=== PATIENT | female | born 1990 | race Two or more races ===

== ENCOUNTER 2016-06-07 20:05 | Emergency (ER) | payer SELFPAY ==
--- NOTE | 2016-06-07 20:12 | ER Document Report ---
ED Medical Screen (RME) - General Stated Complaint: BODY PAIN DIZZY Mode of Arrival: Ambulatory Information source: Patient Notes: Patient presents to the emergency department with complaints of body aches and pains dizziness for 2 weeks. Reports occasional diarrhea. Reports occasionally nauseated, vomited three days ago. Reports when she stands up she feels dizzy for a few seconds when she starts walking it goes away. Past medical history. Reports doesn't drink enough fluids. I have greeted and performed a rapid initial assessment of this patient. A comprehensive ED assessment and evaluation of the patient, analysis of test results and completion of the medical decision making process will be conducted by additional ED providers. TRAVEL OUTSIDE OF THE [place] IN LAST 30 DAYS: No - Related Data Allergies/Adverse Reactions: No Known Allergies Allergy (Unverified 01/04/14 13:22) Past Medical History Past Surgical History: Reports: Hx Appendectomy, Hx Oral Surgery - wisdom teeth - Immunizations Hx Diphtheria, Pertussis, Tetanus Vaccination: Yes
--- NOTE | 2016-06-07 21:23 | EKG REPORT ---
SEVERITY:- NORMAL ECG - SINUS RHYTHM : Confirmed by: Tony Ray MD 07-Jun-2016 21:22:48
[2016-06-07 21:54] LABS: APPEARANCE,URINE CLOUDY; BILIRUBIN,URINE NEGATIVE (NEGATIVE); GLUCOSE, URINE NEGATIVE (NEGATIVE); KETONES,URINE TRACE mg/dL (NEGATIVE); LEUKOCYTE ESTERASE,URINE MODERATE (NEGATIVE); NITRITE,URINE NEGATIVE (NEGATIVE); PROTEIN,URINE NEGATIVE (NEGATIVE); URINE SPECIFIC GRAVITY 1.035; UROBILINOGEN,URINE NEGATIVE mg/dL (<2.0)
--- NOTE | 2016-06-08 00:10 | ER Document Report ---
ED General - General Chief Complaint: Pain All Over Stated Complaint: BODY PAIN DIZZY Mode of Arrival: Ambulatory Information source: Patient Notes: 26 y/o F presents to ED c/o bilateral lower back and lower leg/feet pain. Patient reports works long hours 6 days a week with prolonged standing and states over the last 2 weeks has had intermittently persistent pain to bilateral lower back and feet particularly after work. Reports pain is mostly to bilateral heels and lower back. Denies fall or trauma, fever, extremity weakness/numbness/tingling, dysuria or hematuria, vaginal bleeding or discharge , incontinence, or urinary retention. TRAVEL OUTSIDE OF THE [place] IN LAST 30 DAYS: No - HPI Onset/Duration: Intermittent, Persistent Quality of pain: Achy Severity: Mild Pain Level: 3 Exacerbated by: Standing Relieved by: Sitting Similar symptoms previously: Yes Recently seen / treated by doctor: No - Related Data Allergies/Adverse Reactions: No Known Allergies Allergy (Unverified 01/04/14 13:22) Past Medical History - General Information source: Patient - Social History Smoking Status: Never Smoker Frequency of alcohol use: None Drug Abuse: None Lives with: Family Family History: Reviewed & Not Pertinent Patient has suicidal ideation: No Patient has homicidal ideation: No - Medical History Medical History: Negative Renal/ Medical History: Denies: Hx Peritoneal Dialysis Past Surgical History: Reports: Hx Appendectomy, Hx Oral Surgery - wisdom teeth - Immunizations Hx Diphtheria, Pertussis, Tetanus Vaccination: Yes Review of Systems - Review of Systems Constitutional: No symptoms reported EENT: No symptoms reported Cardiovascular: No symptoms reported Respiratory: No symptoms reported Gastrointestinal: No symptoms reported Genitourinary: No symptoms reported Female Genitourinary: No symptoms reported Musculoskeletal: See HPI Skin: No symptoms reported Hematologic/Lymphatic: No symptoms reported Neurological/Psychological: No symptoms reported -: Yes All other systems reviewed and negative Physical Exam - Vital signs Vitals: Temp Pulse Resp BP Pulse Ox 98.4 F 68 17 112/63 100 06/07/16 20:13 06/07/16 20:13 06/07/16 20:13 06/07/16 20:13 06/07/16 20:13 Interpretation: Normal - General General appearance: Appears well, Alert In distress: None - HEENT Head: Normocephalic, Atraumatic Eyes: Normal Pupils: PERRL - Respiratory Respiratory status: No respiratory distress Chest status: Nontender Breath sounds: Normal Chest palpation: Normal - Cardiovascular Rhythm: Regular Heart sounds: Normal auscultation Murmur: No Pulses: Normal: Radial, Dorsalis pedis Normal capillary refill: Yes - Abdominal Inspection: Normal Distension: No distension Bowel sounds: Normal Tenderness: Nontender Organomegaly: No organomegaly - Back Back: Tender - Mild tenderness to palpation to bilateral paraspinal musculature at the upper lumbar level. Full range of motion without paresthesias or neurological deficits.. No: Normal, Nontender, Deformity/step-off, CVA tenderness, Vertebra tenderness, Scars, Scoliosis, Wounds, Other - Extremities General upper extremity: Normal inspection, Nontender, Normal color, Normal ROM , Normal strength, Normal temperature. No: Tender, Edema General lower extremity: Normal inspection, Nontender, Normal color, Normal ROM , Normal strength, Normal temperature, Normal weight bearing. No: Tender, Edema , Sera's sign - Neurological Neuro grossly intact: Yes Cognition: Normal Orientation: AAOx4 [place] Coma Scale Eye Opening: Spontaneous [place] Coma Scale Verbal: Oriented [place] Coma Scale Motor: Obeys Commands [place] Coma Scale Total: 15 Speech: Normal Motor strength normal: LUE, RUE, LLE, RLE Sensory: Normal - Psychological Associated symptoms: Normal affect, Normal mood - Skin Skin Temperature: Warm Skin Moisture: Dry Skin Color: Normal Course - Re-evaluation Re-evalutation: 06/08/16 00:14 Patient hemodynamically stable, in no distress, afebrile, nontoxic, and well- appearing. Trace ketones, moderate leukocyte esterase, and wbc's in UA. Urine culture obtained. No suggestion of pyelonephritis or other emergent or significant etiology at this time. The patient presents with back pain without signs of spinal cord compression, cauda equina syndrome, infection, aneurysm, or other serious etiology. The patient is neurologically intact, independently and steadily ambulatory without paresthesias or neurological deficits. Given the extremely low risk of these diagnoses further testing and evaluation for these possibilities does not appear to be indicated at this time. Patient appears stable for discharge and agrees with home care, follow-up with PCP, and ED return precautions. - Vital Signs Vital signs: Temp Pulse Resp BP Pulse Ox 98.4 F 68 17 112/63 100 06/07/16 20:13 06/07/16 20:13 06/07/16 20:13 06/07/16 20:13 06/07/16 20:13 - Laboratory Laboratory results interpreted by me: 06/07/16 21:15 Urine Ketones TRACE H Ur Leukocyte Esterase MODERATE H Urine Ascorbic Acid 40 H Discharge - Discharge Clinical Impression: Back pain Qualifiers: Back pain location: low back pain Chronicity: acute Back pain laterality: bilateral Sciatica presence: without sciatica Qualified Code(s): M54.5 - Low back pain UTI (urinary tract infection) Qualifiers: Urinary tract infection type: site unspecified Hematuria presence: without hematuria Qualified Code(s): N39.0 - Urinary tract infection, site not specified Condition: Stable Disposition: HOME, SELF-CARE Additional Instructions: LOW BACK PAIN: Three out of every four people will have an episode of disabling back pain during their lifetime. Most commonly the pain is due to straining of the muscles and ligaments in the low back. Usual treatment includes: (1) Rest on a firm surface. Avoid lying on your stomach. (2) Ice pack the painful area. After a few days, gentle heat may be used intermittently to relax the area, or ice packs can be continued. (3) Medication may be needed -- muscle relaxers and antiinflammatory medicines are commonly used. (4) As the back improves, exercises are prescribed to strengthen the back and abdominal muscles. Your doctor will advise you on the proper care for your back at each stage in your recovery. You may be better in a few days -- or healing may take several weeks. If new symptoms of a "herniated disc" (radiation of pain, numbness, or tingling down the back of the leg or weakness in the leg) occur, you should be re-examined. Further testing may be necessary. Anti-Inflammatory Medication You have received a prescription for an antiinflammatory agent. This is an excellent, safe drug for pain control. In addition, it has potent antiinflammatory effects which are beneficial, especially in the treatment of injuries, arthritis, or tendonitis. It's best to take this medicine with food. Persons with ulcer disease or allergy to aspirin should notify their physician of this before taking this drug. Take the medication exactly as prescribed. Don't take additional doses unless instructed to do so by your doctor. If you develop wheezing, shortness of breath, hives, faintness, stomach pain, vomiting, or dark black stools, return for re-evaluation at once. ICE PACKS: Apply ice packs frequently against the painful area. Many different schedules are recommended, such as "20 minutes on, 20 minutes off" or "one hour ice, two hours rest." If you need to work, you may need to go longer between ice treatments. You should plan to have the area ice packed AT LEAST one fourth of the time. The ice should be applied over the wrap, tape, or splint, or over a layer of cloth -- not directly against the skin. Some ice bags have a built-in cloth and can be put directly on the skin. WARM PACKS: After approximately two days, apply gentle heat (such as a heating pad or hot water bottle) for about 20 to 30 minutes about every two hours -- at least four times daily. Warmth and elevation will help you make a more rapid recovery , and will ease the pain considerably. Do not use HOT heat, and never apply heat for longer than 30 minutes. The continuous heat can invisibly damage skin and muscles -- even when no burn is seen on the surface. Damaged muscles can make you MORE sore. URINARY TRACT INFECTION: Your evaluation indicates that you have a urinary tract infection. This is due to germs growing in the bladder. This is a common problem. This infection usually responds quickly to antibiotics. Your antibiotic should be taken exactly as prescribed. Drink plenty of fluids -- three to four quarts a day. Occasionally, a bladder anesthetic will be prescribed to help stop the feeling of urgency until the antibiotic has a chance to clear the infection. This may cause your urine to be dark orange. Certain urine infections require a culture. If the doctor obtained a culture, the results will be back in two days. You should call to see if a change in treatment is needed. A repeat urinalysis after you finish treatment is often recommended. The physician will let you know if further testing is required. Call the doctor if you develop fever, chills, flank pain, inability to urinate, or blood in the urine. ANTIBIOTIC THERAPY: You have been given an antibiotic prescription. It's important that you take all the medication, unless instructed otherwise by your physician. Failure to complete the entire course can result in relapse of your condition. Common side effects of antibiotics include nausea, intestinal cramping, or diarrhea. Women may develop vaginal yeast infections, and babies can get yeast (thrush) in the mouth following the use of antibiotics. Contact your physician if you develop significant side effects from this medication. Allergy to this antibiotic can result in hives, wheezing, faintness, or itching. If symptoms of allergy occur, stop the medication and call the doctor. NITROFURANTOIN (MACRODANTIN, MACROBID): You have received a prescription for nitrofurantoin (Macrodantin). This antibiotic is used for urinary tract infections. Women who are or nursing should notify the physician before taking this medicine. If you have ever had a problem caused by this medication in the past, be sure the physician is aware of it. Common side effects of this medicine include nausea, vomiting, or decreased appetite. Notify your physician if these side effects become severe. Immediately stop this medicine and call the physician if you develop cough , shortness of breath, chest pain, weakness, jaundice (yellow color of the skin and whites of the eyes), or a skin rash. FOLLOW-UP CARE: Drink plenty of fluids, at least 2-3 liters of water per day. Use supportive insoles and/or well padded shoes during work. Follow-up with your primary care provider this week. Return to the emergency department for any worsening symptoms or concerns. Prescriptions: Naproxen 500 mg PO BIDP PRN #10 tablet PRN Reason: Nitrofurantoin/Nitrofuran Mac [Macrobid 100 mg Capsule] 1 tab PO BID #14 capsule Forms: Return to Work
[2016-06-08 00:43] VITALS: BP 118/61
== END 2016-06-08 00:35 | disposition home or self-care (01) ==
LOC: ER 20:05
DX: N39.0 Urinary tract infection, site not specified (principal); M54.5 Low back pain; M79.671 Pain in right foot; M79.672 Pain in left foot
CPT/HCPCS: 81001; 81025; 87086; 93005; 93010; 99283

== ENCOUNTER 2016-11-04 08:44 | Emergency (ER) | payer OTHER ==
--- NOTE | 2016-11-04 09:38 | ER Document Report ---
ED General - General Chief Complaint: Nausea Stated Complaint: NAUSEA,CHEST PRESSURE Time Seen by Provider: 11/04/16 09:28 Notes: 26 yo female c/o becoming over heated while at work today. 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 became over heated, started to sweat, hands and mouth became numb. pt worried she had a heat stroke. TRAVEL OUTSIDE OF THE [place] IN LAST 30 DAYS: No - HPI Onset/Duration: Sudden, Better Quality of pain: Achy Associated symptoms: Sweating, Weakness. denies: Nausea, Vomiting Exacerbated by: Denies Relieved by: Denies Similar symptoms previously: No Recently seen / treated by doctor: No - Related Data Allergies/Adverse Reactions: No Known Allergies Allergy (Verified 11/04/16 08:47) Past Medical History - General Information source: Patient - Social History Smoking Status: Never Smoker Frequency of alcohol use: None Drug Abuse: None Lives with: Family Family History: Reviewed & Not Pertinent Patient has suicidal ideation: No Patient has homicidal ideation: No - Medical History Medical History: Negative Renal/ Medical History: Denies: Hx Peritoneal Dialysis Past Surgical History: Reports: Hx Appendectomy, Hx Oral Surgery - wisdom teeth - Immunizations Hx Diphtheria, Pertussis, Tetanus Vaccination: Yes Review of Systems - Review of Systems Constitutional: No symptoms reported EENT: No symptoms reported Cardiovascular: No symptoms reported Respiratory: No symptoms reported Gastrointestinal: No symptoms reported Genitourinary: No symptoms reported Female Genitourinary: No symptoms reported Musculoskeletal: No symptoms reported Skin: No symptoms reported Hematologic/Lymphatic: No symptoms reported Neurological/Psychological: No symptoms reported -: Yes All other systems reviewed and negative Physical Exam - Vital signs Interpretation: Normal - General General appearance: Appears well, Alert In distress: None - HEENT Head: Normocephalic, Atraumatic Eyes: Normal Conjunctiva: Normal Extraocular movements intact: Yes Pupils: PERRL Tympanic membrane: Normal Mucous membranes: Moist Pharynx: Normal Neck: Normal, Supple - Respiratory Respiratory status: No respiratory distress Chest status: Nontender Breath sounds: Normal Chest palpation: Normal - Cardiovascular Rhythm: Regular Heart sounds: Normal auscultation Murmur: No - Abdominal Inspection: Normal Distension: No distension Bowel sounds: Normal Tenderness: Nontender Organomegaly: No organomegaly - Back Back: Normal, Nontender - Extremities General upper extremity: Normal inspection, Nontender, Normal color, Normal ROM , Normal temperature General lower extremity: Normal inspection, Nontender, Normal color, Normal ROM , Normal temperature, Normal weight bearing. No: Sera's sign - Neurological Neuro grossly intact: Yes Cognition: Normal Orientation: AAOx4 [place] Coma Scale Eye Opening: Spontaneous [place] Coma Scale Verbal: Oriented [place] Coma Scale Motor: Obeys Commands [place] Coma Scale Total: 15 Speech: Normal Motor strength normal: LUE, RUE, LLE, RLE Sensory: Normal - Psychological Associated symptoms: Normal affect, Normal mood - Skin Skin Temperature: Warm Skin Moisture: Dry Skin Color: Normal Course - Re-evaluation Re-evalutation: 11/04/16 09:37 H&P physical not consistant with heat stroke. more likely, pt became overheated , hyperventilated. will check labs and encourage po fluids 11/04/16 11:24 labs are normal. pt drinking without difficulty. feeling well presenlty. no abdominal pain, no muscle cramping, no headache, no n/v. pt stable for discharge - Laboratory Result Diagrams: 11/04/16 09:55 Laboratory results interpreted by me: 11/04/16 09:55 Ur Leukocyte Esterase TRACE H Discharge - Discharge Clinical Impression: Hyperventilation Heat exhaustion, unspecified Qualifiers: Encounter type: initial encounter Qualified Code(s): T67.5XXA - Heat exhaustion , unspecified, initial encounter Condition: Stable Disposition: HOME, SELF-CARE Instructions: Heat Exhaustion ([facility]), Hyperventilation ([facility]) Additional Instructions: your labs are normal today you got overheated at worked and hyperventilated rest and hydrate follow up with primary care Forms: Return to Work
[2016-11-04 10:36] LABS: APPEARANCE,URINE SLIGHTLY-CLOUDY; BILIRUBIN,URINE NEGATIVE (NEGATIVE); GLUCOSE, URINE NEGATIVE (NEGATIVE); KETONES,URINE NEGATIVE (NEGATIVE); LEUKOCYTE ESTERASE,URINE TRACE (NEGATIVE); NITRITE,URINE NEGATIVE (NEGATIVE); PROTEIN,URINE NEGATIVE (NEGATIVE); URINE SPECIFIC GRAVITY 1.029; UROBILINOGEN,URINE NEGATIVE mg/dL (<2.0)
[2016-11-04 10:44] LABS: ALANINE AMINOTRANSFERASE 24 U/L (9-52); ALBUMIN 4.2 g/dL (3.5-5.0); ALKALINE PHOSPHATASE 66 U/L (38-126); ANION GAP 11 (5-19); ASPARTATE AMINO TRANSFERASE 15 U/L (14-36); BILIRUBIN,DIRECT 0.3 mg/dL (0.0-0.4); BILIRUBIN,TOTAL 0.7 mg/dL (0.2-1.3); BLOOD UREA NITROGEN 12 mg/dL (7-20); CALCIUM 9.6 mg/dL (8.4-10.2); CARBON DIOXIDE 25 mmol/L (22-30); CHLORIDE 103 mmol/L (98-107); CREATINE KINASE 94 U/L (30-135); CREATININE RESULT 0.53 mg/dL (0.52-1.25); GLUCOSE 93 mg/dL (75-110); SODIUM 139.2 mmol/L (137-145); TOTAL PROTEIN 7.3 g/dL (6.3-8.2)
[2016-11-04 11:36] VITALS: BP 98/60
== END 2016-11-04 11:36 | disposition home or self-care (01) ==
LOC: ER 08:44
DX: T67.5XXA Heat exhaustion, unspecified, initial encounter (principal); W92.XXXA Exposure to excessive heat of man-made origin, initial encounter; Y93.G3 Activity, cooking and baking; Y92.89 Other specified places as the place of occurrence of the external cause; Y99.0 Civilian activity done for income or pay; R06.4 Hyperventilation
CPT/HCPCS: 36415; 80053; 81001; 81025; 82550; 99283

== ENCOUNTER 2016-12-21 08:37 | Emergency (ER) | payer OTHER ==
[2016-12-21] MEDS ORDERED: ACETAMINOPHEN 325 MG TABLET PO ONE (09:46)
--- NOTE | 2016-12-21 09:46 | ER Document Report ---
ED Flu Like - General Chief Complaint: Flu Symptoms Stated Complaint: BODY ACHES Time Seen by Provider: 12/21/16 08:59 Mode of Arrival: Ambulatory Information source: Patient Notes: Patient is a 26-year-old female who presents to the ER today for generalized body aches, sinus pressure, runny nose, mild cough, all starting last night and this morning. Patient admits to fever and chills as well. She has not tried anything at home. She does not have asthma. She denies any shortness of breath or wheezing. She states "my whole body hurts, even my butt hurts." She denies any dysuria, hematuria, vomiting or diarrhea. TRAVEL OUTSIDE OF THE [place] IN LAST 30 DAYS: No - Related Data Allergies/Adverse Reactions: No Known Allergies Allergy (Verified 11/04/16 08:47) Past Medical History - General Information source: Patient - Social History Smoking Status: Unknown if Ever Smoked Family History: Reviewed & Not Pertinent Patient has suicidal ideation: No Patient has homicidal ideation: No Renal/ Medical History: Denies: Hx Peritoneal Dialysis Past Surgical History: Reports: Hx Appendectomy, Hx Oral Surgery - wisdom teeth - Immunizations Hx Diphtheria, Pertussis, Tetanus Vaccination: Yes Review of Systems - Review of Systems Constitutional: See HPI EENT: See HPI Cardiovascular: No symptoms reported Respiratory: See HPI Gastrointestinal: No symptoms reported Genitourinary: No symptoms reported Female Genitourinary: No symptoms reported Musculoskeletal: See HPI Skin: No symptoms reported Hematologic/Lymphatic: No symptoms reported Neurological/Psychological: No symptoms reported Physical Exam - Vital signs Vitals: Temp Pulse Resp BP Pulse Ox 100.4 F 101 H 18 107/61 98 12/21/16 08:39 12/21/16 08:39 12/21/16 08:39 12/21/16 08:39 12/21/16 08:39 - Notes Notes: PHYSICAL EXAMINATION: GENERAL: Mildly ill-appearing, in no acute distress. HEAD: Atraumatic, normocephalic. EYES: Pupils equal round and reactive to light, extraocular movements intact, sclera anicteric, conjunctiva are normal. ENT: ear canals without erythema or foreign body, TMs pearly crawley with good bony landmarks, nares with mucoid discharge, oropharynx clear without exudates. Moist mucous membranes. Maxillary sinuses tender to palpation to extremely light touch NECK: Normal range of motion, supple without lymphadenopathy LUNGS: CTAB and equal. No wheezes rales or rhonchi. HEART: Regular rate and rhythm without murmurs ABDOMEN: Soft, no tenderness. No guarding, no rebound BACK: Entire backwinder to extremely light touch, no specific vertebral tenderness, normal ROM GI/: no CVA tenderness EXTREMITIES: Normal range of motion, no pitting edema. No cyanosis. NEUROLOGICAL: Cranial nerves grossly intact. Normal sensory/motor exams. Good and equal strength bilaterally, Kernig and Brudzinski's signs negative, Romberg' s test normal, normal heel to staples testing PSYCH: Normal mood, normal affect. SKIN: very Warm, Dry, normal turgor, no rashes or lesions noted Course - Re-evaluation Re-evalutation: 12/21/16 10:44Flu and strep are negative today. Patient has a viral syndrome and needs to take Tylenol for her fever And body aches. - Vital Signs Vital signs: Temp Pulse Resp BP Pulse Ox 100.4 F 101 H 18 107/61 98 12/21/16 08:39 12/21/16 08:39 12/21/16 08:39 12/21/16 08:39 12/21/16 08:39 Discharge - Discharge Clinical Impression: Viral syndrome, Body aches Fever Qualifiers: Fever type: unspecified Qualified Code(s): R50.9 - Fever, unspecified Condition: Stable Disposition: HOME, SELF-CARE Instructions: Fever ([facility]), Viral Syndrome ([facility]) Additional Instructions: Return immediately for any new or worsening symptoms. Follow up with primary care provider, call tomorrow to make followup appointment. Prescriptions: Fluticasone Propionate [Flonase Nasal [place] 50 Mcg/[place] 16 gm] 2 sprays NASL Q12 #1 inhaler Ibuprofen [Motrin 800 mg Tablet] 800 mg PO Q8H PRN #30 tab PRN Reason: Forms: Return to Work
[2016-12-21 11:03] VITALS: BP 97/55
== END 2016-12-21 11:03 | disposition home or self-care (01) ==
LOC: ER 08:37
DX: B34.9 Viral infection, unspecified (principal); J34.89 Other specified disorders of nose and nasal sinuses; R05 Cough; R50.9 Fever, unspecified; R52 Pain, unspecified
CPT/HCPCS: 87070; 87077; 87804; 87880; 99283

== ENCOUNTER 2017-07-10 11:47 | Emergency (ER) | payer OTHER ==
[2017-07-10] MEDS ORDERED: IBUPROFEN 800 MG TABLET PO ONE (12:28)
[2017-07-10] MEDS ORDERED: ONDANSETRON 4 MG TAB.RAPDIS PO ONE (12:32)
--- NOTE | 2017-07-10 12:32 | ER Document Report ---
HPI - HPI Patient complains to provider of: flu like symptoms Onset: This morning Onset/Duration: Sudden Quality of pain: Achy Pain Level: 2 Context: Patient presents emergency department with complaints of flulike symptoms that started this morning. Patient reports she vomited once. She reports she has had diarrhea daily for the past 3 days. Reports sore throat in her whole body hurts. She denies fever. Has not taken any medication for her pain. Associated Symptoms: Body/muscle aches, Diarrhea, Nausea, Vomiting Exacerbated by: Denies Relieved by: Denies Similar symptoms previously: No Recently seen / treated by doctor: No Past Medical History - General Information source: Patient Last Menstrual Period: IUD - Social History Smoking Status: Unknown if Ever Smoked Cigarette use (# per day): No Frequency of alcohol use: None Drug Abuse: None Lives with: Family Family History: Reviewed & Not Pertinent Patient has suicidal ideation: No Patient has homicidal ideation: No Renal/ Medical History: Denies: Hx Peritoneal Dialysis Past Surgical History: Reports: Hx Appendectomy, Hx Oral Surgery - wisdom teeth - Immunizations Hx Diphtheria, Pertussis, Tetanus Vaccination: Yes Vertical Provider Document - CONSTITUTIONAL Agree With Documented VS: Yes Exam Limitations: No Limitations General Appearance: WD/WN, No Apparent Distress - NONTOXIC LOOKING - INFECTION CONTROL TRAVEL OUTSIDE OF THE [place] IN LAST 30 DAYS: No - HEENT HEENT: Atraumatic, Normocephalic, Pharyngeal Erythema. negative: Conjuctival Injection, Pharyngeal Exudate - NECK Neck: Normal Inspection, Supple. negative: Lymphadenopathy-Left, Lymphadenopathy-Right - RESPIRATORY Respiratory: Breath Sounds Normal, No Respiratory Distress - CARDIOVASCULAR Cardiovascular: Regular Rate - GI/ABDOMEN Gastrointestinal: Abdomen Soft, Abdomen Non-Tender - MUSCULOSKELETAL/EXTREMETIES Musculoskeletal/Extremeties: MAEW, FROM - NEURO Level of Consciousness: Awake, Alert, Appropriate Motor/Sensory: No Motor Deficit - DERM Integumentary: Warm, Dry, No Rash Course - Re-evaluation Re-evalutation: 07/10/17 Patient positive for strep negative for influenza. Patient will be treated with penicillin G here in the emergency department. She was instructed on strep. She was instructed on the importance of fluids Tylenol and follow-up. She verbalized understanding all instructions. - Vital Signs Vital signs: Temp Pulse Resp BP Pulse Ox 100.6 F H 67 18 112/84 100 07/10/17 12:03 07/10/17 12:03 07/10/17 12:03 07/10/17 12:03 07/10/17 12:03 Discharge - Discharge Clinical Impression: Flu-like symptoms, Strep throat Condition: Stable Disposition: HOME, SELF-CARE Instructions: Acetaminophen, Penicillins ([facility]), Strep Throat ([facility]) Additional Instructions: *You have been evaluated for a flu like symptoms, strep *Take tylenol or ibuprofen as indicated *Push fluids *Warm salt water gargles and throat lozenges for comfort *Change toothbrush after two days of antibiotics *Do not let anyone drink/eat after you *Good hand washing *Follow-up with a primary care provider within 5 days for recheck *Return to ED for worsening condition change, needs, trouble swallowing, concerns
[2017-07-10 13:22] LABS: A TYPE INFLUENZA AG NEGATIVE (NEGATIVE); B INFLUENZA AG NEGATIVE (NEGATIVE)
[2017-07-10] MEDS ORDERED: PENICILLIN G BENZATHINE 1.2 MILLION UNIT/2 ML DISP.SYRIN IM ONE (13:25)
[2017-07-10 14:25] VITALS: BP 96/59
== END 2017-07-10 14:26 | disposition home or self-care (01) ==
LOC: ER 11:47
DX: J02.0 Streptococcal pharyngitis (principal); R19.7 Diarrhea, unspecified; M79.1 Myalgia; R11.2 Nausea with vomiting, unspecified
CPT/HCPCS: 99283; 96372; 87880; 87804; S0119; J0561

== ENCOUNTER 2019-08-10 19:49 | Emergency (ER) | payer MEDICAID, OTHER ==
--- NOTE | 2019-08-10 20:32 | ER Document Report ---
ED Medical Screen (RME) - General Chief Complaint: Pelvic Pain Stated Complaint: ABDOMINAL PAIN Time Seen by Provider: 08/10/19 20:30 Mode of Arrival: Ambulatory Information source: Patient Notes: 29-year-old female presented to ED for complaint of right lower pelvic pain for the last 4 hours. She states she has had a positive test at [facility]. She states she is 3 para 1 with 1 miscarriage. She is alert oriented respirations regular and unlabored speaking in full sentences. I have greeted and performed a rapid initial assessment of this patient. A comp rehensive ED assessment and evaluation of the patient, analysis of test results and completion of medical decision making process will be conducted by an additional ED providers. TRAVEL OUTSIDE OF THE [place] IN LAST 30 DAYS: No - Related Data Allergies/Adverse Reactions: No Known Allergies Allergy (Verified 07/10/17 11:47) Past Medical History Renal/ Medical History: Denies: Hx Peritoneal Dialysis Past Surgical History: Reports: Hx Appendectomy, Hx Oral Surgery - wisdom teeth - Immunizations Hx Diphtheria, Pertussis, Tetanus Vaccination: Yes Physical Exam - Vital signs Vitals: Temp Pulse Resp BP Pulse Ox 98.8 F 95 16 117/66 98 08/10/19 19:53 08/10/19 19:53 08/10/19 19:53 08/10/19 19:53 08/10/19 19:53 Course - Vital Signs Vital signs: Temp Pulse Resp BP Pulse Ox 98.8 F 95 16 117/66 98 08/10/19 19:53 08/10/19 19:53 08/10/19 19:53 08/10/19 19:53 08/10/19 19:53
[2019-08-10] MEDS ORDERED: ACETAMINOPHEN 325 MG TABLET PO ONE (20:33)
--- NOTE | 2019-08-10 21:30 | RADIOLOGY REPORT (SQ) ---
US PELVIS HISTORY: Early . Pelvic pain. COMPARISON: None. TECHNIQUE: Grayscale, color Doppler, and spectral Doppler ultrasound images of the pelvis were obtained. FINDINGS: There is an intrauterine gestational sac with a yolk sac and pole visualized. The crown-rump length measures 1.65 cm corresponding to 8 weeks 1 day. The heart rate is 180 bpm. The left ovary is not visualized. The right ovary measures 3.8 x 3.1 cm and contains a 2.3 cm simple cyst. There is normal color Doppler blood flow in the right ovary. No free fluid. IMPRESSION: 1. Single live IUP with estimated gestational age 8 weeks 1 day. 2. 2.3 cm simple right ovarian cyst for which no follow-up imaging is needed.
[2019-08-10 22:45] LABS: APPEARANCE,URINE CLOUDY; BILIRUBIN,URINE NEGATIVE (NEGATIVE); GLUCOSE, URINE NEGATIVE (NEGATIVE); KETONES,URINE NEGATIVE (NEGATIVE); LEUKOCYTE ESTERASE,URINE SMALL (NEGATIVE); NITRITE,URINE NEGATIVE (NEGATIVE); PROTEIN,URINE 30 mg/dL (NEGATIVE); URINE SPECIFIC GRAVITY 1.035
[2019-08-10 22:46] LABS: COLOR,URINE YELLOW
[2019-08-11 01:28] LABS: ABSOLUTE EOSINOPHILS # (AUTO) 0.1 10^3/uL (0.0-0.6); ABSOLUTE LYMPHOCYTES (AUTO) 3.4 10^3/uL (0.5-4.7); ABSOLUTE MONOCYTES (AUTO) 0.7 10^3/uL (0.1-1.4); ABSOLUTE NEUT (AUTO) 6.6 10^3/uL (1.7-8.2); BASOPHILS % (AUTO) 0.3 % (0-2); EOSINOPHILS % (AUTO) 0.6 % (0-6); HEMATOCRIT 39.5 % (36.0-47.0); HEMOGLOBIN 13.4 g/dL (12.0-15.5); LYMPHOCYTES % (AUTO) 31.3 % (13-45); MEAN CORPUSCULAR HEMOGLOBIN 29.8 pg (27.0-33.4); MEAN CORPUSCULAR VOLUME 88 fl (80-97); MONOCYTES % (AUTO) 6.4 % (3-13); PLATELET COUNT 247 10^3/uL (150-450); RED BLOOD COUNT 4.52 10^6/uL (3.72-5.28); RED CELL DISTRIBUTION WIDTH 12.8 % (11.5-14.0); SEGMENTED NEUTROPHILS % (AUTO) 61.4 % (42-78); TOTAL CELLS COUNTED % (AUTO) 100 %; WHITE BLOOD COUNT 10.8 10^3/uL (4.0-10.5)
[2019-08-11 01:48] LABS: ALBUMIN 4.2 g/dL (3.5-5.0); ALKALINE PHOSPHATASE 48 U/L (38-126); ANION GAP 8 (5-19); ASPARTATE AMINO TRANSFERASE 18 U/L (14-36); BILIRUBIN,TOTAL 0.5 mg/dL (0.2-1.3); BLOOD UREA NITROGEN 13 mg/dL (7-20); CALCIUM 9.4 mg/dL (8.4-10.2); CARBON DIOXIDE 25 mmol/L (22-30); CHLORIDE 101 mmol/L (98-107); GLUCOSE 85 mg/dL (75-110); POTASSIUM 4.4 mmol/L (3.6-5.0); TOTAL PROTEIN 7.4 g/dL (6.3-8.2)
[2019-08-11 06:41] VITALS: BP 106/68
--- NOTE | 2019-08-11 06:53 | ER Document Report ---
ED General - General Chief Complaint: Pelvic Pain Stated Complaint: ABDOMINAL PAIN Time Seen by Provider: 08/10/19 20:30 Mode of Arrival: Ambulatory TRAVEL OUTSIDE OF THE [place] IN LAST 30 DAYS: No - HPI Notes: Chief complaint: Right side pelvic pain HPI: 29-year-old female presented to ED for complaint of right lower pelvic pain for the last 4 hours. She states she has had a positive test at [facility]. She states she is 3 para 1 with 1 miscarriage. She reports that pain has resolved while she has been waiting here in the emergency department. Currently asymptomatic. Denies nausea, vomiting, fever, chills, dysuria or back pain. Denies vaginal bleeding. Denies vaginal discharge. - Related Data Allergies/Adverse Reactions: No Known Allergies Allergy (Verified 07/10/17 11:47) Home Medications: prenatals Past Medical History - General Information source: Patient Last Menstrual Period: 06/09/19 - Social History Smoking Status: Never Smoker Family History: Reviewed & Not Pertinent Patient has homicidal ideation: No Renal/ Medical History: Denies: Hx Peritoneal Dialysis Past Surgical History: Reports: Hx Appendectomy, Hx Oral Surgery - wisdom teeth - Immunizations Hx Diphtheria, Pertussis, Tetanus Vaccination: Yes Review of Systems - Review of Systems Notes: Constitutional: Negative for fever. HENT: Negative for sore throat. Eyes: Negative for visual changes. Cardiovascular: Negative for chest pain. Respiratory: Negative for shortness of breath. Gastrointestinal: As per HPI. Genitourinary: As per HPI. Musculoskeletal: Negative for back pain. Skin: Negative for rash. Neurological: Negative for headaches, weakness or numbness. 10 point ROS negative except as marked above and in HPI. Physical Exam - Vital signs Vitals: Temp Pulse Resp BP Pulse Ox 98.8 F 95 16 117/66 98 08/10/19 19:53 08/10/19 19:53 08/10/19 19:53 08/10/19 19:53 08/10/19 19:53 - Notes Notes: GENERAL: Well-developed well-nourished appearing in no acute distress. SKIN: Good turgor no rashes. HEAD: Normocephalic atraumatic. EYES: PERRLA. EOMI. Conjunctivae and sclerae clear. EARS: CANALS AND TMS CLEAR. NOSE: CLEAR. MOUTH: Moist mucosa. Good dentition. No stridor or edema. No drooling. NECK: Supple. No masses or thyromegaly. No adenopathy. Carotids 2+ without bruits. No JVD. BACK: Symmetrical without tenderness. CHEST: Respirations unlabored. Breath sounds clear and symmetrical. HEART: Regular rhythm. No murmur gallop or rub. ABDOMEN: Soft nontender without masses, organomegaly or rebound. Bowel sounds normally active. No bruits. GENITALIA: Deferred. EXTREMITIES: No edema. No calf tenderness. Cap refill less than 1.5 seconds. Dorsalis pedis and posterior tibial pulses 3+ and symmetrical. NEUROLOGICAL: GCS 15. Alert and oriented x3. Normal gait. Fluent speech. C ranial nerves II through XII intact. Sensorimotor and cerebellar normal. Normal tone. PSYCHIATRIC: Appropriate affect. Course - Re-evaluation Re-evalutation: 08/11/19 06:50 Labs unremarkable. Patient had a normal exam at the time of my encounter. Pain had resolved completely. Pelvic ultrasound obtained while in department showed IUP at about 8 weeks EGA. She also had a right sided ovarian cyst with good blood flow to the ovary and no free fluid reported by radiologist. Patient is basically reassured regarding these findings. I recommend Tylenol only. She fully understands my findings and recommendations and is in a greement. She will [facility]. - Vital Signs Vital signs: Temp Pulse Resp BP Pulse Ox 98.3 F 89 16 106/68 98 08/11/19 06:40 08/11/19 06:40 08/11/19 06:40 08/11/19 06:40 08/10/19 19:53 - Laboratory Result Diagrams: 08/11/19 00:36 08/11/19 00:36 Laboratory results interpreted by me: 08/10/19 08/11/19 08/11/19 21:15 00:36 00:36 WBC 10.8 H Sodium 134.0 L Creatinine 0.46 L Beta HCG, Quant 99824.00 H Urine Protein 30 H Urine Urobilinogen 2.0 H Ur Leukocyte Esterase SMALL H Urine Ascorbic Acid 40 H - Diagnostic Test Radiology reviewed: Reports reviewed - Transvaginal ultrasound per radiologist: 8-week IUP and uncomplicated right ovarian cyst. Discharge - Discharge Clinical Impression: Pelvic pain, IUP at 8 weeks EGA, Right ovarian cyst Condition: Stable Disposition: HOME, SELF-CARE Instructions: Pelvic Pain in ([facility]) Additional Instructions: Tylenol as needed. Return here as needed for new or worsening symptoms: Pain that is worsening or unimproved Uncontrolled vomiting High fever or shaking chills Overall worsening Follow-up with clinic at health department as discussed. Return here as needed. Forms: Return to Work
== END 2019-08-11 07:02 | disposition home or self-care (01) ==
LOC: ER 19:49
DX: O34.81 Maternal care for other abnormalities of pelvic organs, first trimester (principal); N83.201 Unspecified ovarian cyst, right side; O26.891 Other specified pregnancy related conditions, first trimester; R10.2 Pelvic and perineal pain; Z3A.08 8 weeks gestation of pregnancy
CPT/HCPCS: 99284; 36415; 84702; 85025; 80053; 81001; 76817; 93976; J3490

== ENCOUNTER 2019-09-19 09:18 | Emergency (ER) | payer MEDICAID ==
[2019-09-19] MEDS ORDERED: ONDANSETRON HCL INJ/PF 4 MG/2 ML SDV IV ONE (09:47)
[2019-09-19] MEDS ORDERED: NORMAL SALINE 1000 ML 1,000 ML IV ONE (09:47)
[2019-09-19 10:18] LABS: APPEARANCE,URINE SLIGHTLY-CLOUDY; BILIRUBIN,URINE NEGATIVE (NEGATIVE); GLUCOSE, URINE NEGATIVE (NEGATIVE); KETONES,URINE TRACE mg/dL (NEGATIVE); LEUKOCYTE ESTERASE,URINE NEGATIVE (NEGATIVE); NITRITE,URINE NEGATIVE (NEGATIVE); PROTEIN,URINE NEGATIVE (NEGATIVE); URINE SPECIFIC GRAVITY 1.028; UROBILINOGEN,URINE NEGATIVE mg/dL (<2.0)
[2019-09-19 10:19] LABS: COLOR,URINE DARK YELLOW
[2019-09-19] MEDS ORDERED: METOCLOPRAMIDE HCL INJ/PF 10 MG/2 ML SDV IV ONE (10:46)
--- NOTE | 2019-09-19 10:50 | ER Document Report ---
ED Medical Screen (RME) - General Chief Complaint: Nausea/Vomiting/Diarrhea Stated Complaint: NAUSEA,VOMITING/13 WKS Time Seen by Provider: 09/19/19 10:43 Mode of Arrival: Ambulatory Information source: Patient Notes: 29-year-old female Porfirio to ED for complaint of nausea and vomiting not able to keep her food down. She states she is 13 weeks 2 para 1. She is alert oriented respirations regular nonlabored speaking in full sentences. She states she does not smoke drink or use any drugs. V fluids have been started. I have greeted and performed a rapid initial assessment of this patient. A comprehensive ED assessment and evaluation of the patient, analysis of test results and completion of medical decision making process will be conducted by an additional ED providers. TRAVEL OUTSIDE OF THE [place] IN LAST 30 DAYS: No - Related Data Allergies/Adverse Reactions: No Known Allergies Allergy (Verified 09/19/19 09:35) Past Medical History - Social History Chew tobacco use (# tins/day): No Frequency of alcohol use: None Drug Abuse: None Renal/ Medical History: Denies: Hx Peritoneal Dialysis Past Surgical History: Reports: Hx Appendectomy, Hx Oral Surgery - wisdom teeth - Immunizations Hx Diphtheria, Pertussis, Tetanus Vaccination: Yes Physical Exam - Vital signs Vitals: Temp Pulse Resp BP Pulse Ox 98.1 F 90 16 119/65 100 09/19/19 09:21 09/19/19 09:21 09/19/19 09:21 09/19/19 09:21 09/19/19 09:21 Course - Vital Signs Vital signs: Temp Pulse Resp BP Pulse Ox 98.1 F 90 16 119/65 100 09/19/19 09:21 09/19/19 09:21 09/19/19 09:21 09/19/19 09:21 09/19/19 09:21 - Laboratory Laboratory results interpreted by me: 09/19/19 10:00 Urine Ketones TRACE H Urine Ascorbic Acid 40 H
[2019-09-19 11:19] LABS: ALBUMIN 3.7 g/dL (3.5-5.0); ALKALINE PHOSPHATASE 37 U/L (38-126); ANION GAP 7 (5-19); ASPARTATE AMINO TRANSFERASE 24 U/L (14-36); BILIRUBIN,TOTAL 0.5 mg/dL (0.2-1.3); BLOOD UREA NITROGEN 11 mg/dL (7-20); CALCIUM 9.3 mg/dL (8.4-10.2); CARBON DIOXIDE 23 mmol/L (22-30); CHLORIDE 105 mmol/L (98-107); GLUCOSE 78 mg/dL (75-110); POTASSIUM 4.4 mmol/L (3.6-5.0)
[2019-09-19 11:36] LABS: ABSOLUTE MONOCYTES (AUTO) 0.6 10^3/uL (0.1-1.4); ABSOLUTE NEUT (AUTO) 6.8 10^3/uL (1.7-8.2); BASOPHILS % (AUTO) 0.4 % (0-2); EOSINOPHILS % (AUTO) 0.2 % (0-6); HEMATOCRIT 36.6 % (36.0-47.0); HEMOGLOBIN 12.5 g/dL (12.0-15.5); LYMPHOCYTES % (AUTO) 21.2 % (13-45); MEAN CORPUSCULAR HEMOGLOBIN 29.9 pg (27.0-33.4); MEAN CORPUSCULAR VOLUME 88 fl (80-97); MONOCYTES % (AUTO) 6.2 % (3-13); PLATELET COUNT 213 10^3/uL (150-450); RED BLOOD COUNT 4.17 10^6/uL (3.72-5.28); TOTAL CELLS COUNTED % (AUTO) 100 %; WHITE BLOOD COUNT 9.5 10^3/uL (4.0-10.5)
--- NOTE | 2019-09-19 13:51 | ER Document Report ---
ED General - General Chief Complaint: Nausea/Vomiting/Diarrhea Stated Complaint: NAUSEA,VOMITING/13 WKS Time Seen by Provider: 09/19/19 10:43 Mode of Arrival: Ambulatory TRAVEL OUTSIDE OF THE [place] IN LAST 30 DAYS: No - HPI Notes: Patient is a 29-year-old female, , at approximately 14 weeks gestation, who presents to the emergency department for evaluation of vomiting. She has a history of hyperemesis gravidarum. She states he been having vomiting intermittently throughout this . She states that she is had significant vomiting over the last 4 to 5 days. She said 4-5 episodes of nonbloody, nonbilious emesis today. She states he is really not even keeping water down. She is still urinating. She had 2 episodes of diarrhea yesterday. The patient states she has chronic constipation which converts to diarrhea frequently, does not of the ordinary for her to have the symptoms. She denies any fevers or chills. She denies any abdominal pain. She said no vaginal bleeding. She is currently seeing [facility], awaiting official [employer] consultation. - Related Data Allergies/Adverse Reactions: No Known Allergies Allergy (Verified 09/19/19 09:35) Home Medications: None Past Medical History - General Information source: Patient - Social History Smoking Status: Never Smoker Chew tobacco use (# tins/day): No Frequency of alcohol use: None Drug Abuse: None Family History: None, Reviewed & Not Pertinent Patient has homicidal ideation: No Renal/ Medical History: Denies: Hx Peritoneal Dialysis Past Surgical History: Reports: Hx Appendectomy, Hx Oral Surgery - wisdom teeth - Immunizations Hx Diphtheria, Pertussis, Tetanus Vaccination: Yes Review of Systems - Review of Systems Gastrointestinal: See HPI Female Genitourinary: See HPI -: Yes All other systems reviewed and negative Physical Exam - Vital signs Vitals: Temp Pulse Resp BP Pulse Ox 98.1 F 90 16 119/65 100 09/19/19 09:21 09/19/19 09:21 09/19/19 09:21 09/19/19 09:21 09/19/19 09:21 - Notes Notes: Vital signs reviewed, please refer to chart. Head is normocephalic, atraumatic. Pupils equal round, reactive to light. Neck is supple without meningismus. Heart is regular rate and rhythm. Lungs are clear to auscultation bilaterally. Abdomen is soft, nontender, normoactive bowel sounds throughout. Extremities without cyanosis, clubbing. Posterior calves are nontender. Peripheral pulses are equal. Skin is warm and dry. Patient is awake, alert, neurological exam is nonfocal. Course - Re-evaluation Re-evalutation: 09/19/19 13:48 Patient presents to the emergency department for evaluation. She was initially seen through triage, given fluids, Reglan, Zofran. She is feeling improved. She had some mild hyponatremia, ketones in her urine, but otherwise labs are unr emarkable. She is feeling significantly improved. I will send her home with antiemetic prescription. She is to follow-up closely with [facility] [facility] [facility]. She is to return to the emergency department worsening or new concerning symptoms of any sort. - Vital Signs Vital signs: Temp Pulse Resp BP Pulse Ox 98.1 F 90 16 119/65 100 09/19/19 09:21 09/19/19 09:21 09/19/19 09:21 09/19/19 09:21 09/19/19 09:21 - Laboratory Result Diagrams: 09/19/19 11:20 09/19/19 10:52 Laboratory results interpreted by me: 09/19/19 09/19/19 10:00 10:52 Sodium 134.7 L Creatinine 0.39 L Alkaline Phosphatase 37 L Beta HCG, Quant 15356.00 H Urine Ketones TRACE H Urine Ascorbic Acid 40 H Discharge - Discharge Clinical Impression: Nausea and vomiting during Condition: Stable Disposition: HOME, SELF-CARE Instructions: Vomiting ([facility]) Additional Instructions: Stay hydrated with small, frequent sips of fluids. Diclegis as needed for severe nausea, please note this will cause drowsiness. Follow-up with [employer]. Return to the emergency department for worsening or new concerning symptoms of any sort.
[2019-09-19 14:06] VITALS: BP 105/69
== END 2019-09-19 14:06 | disposition home or self-care (01) ==
LOC: ER 09:18
DX: O21.9 Vomiting of pregnancy, unspecified (principal); O99.280 Endocrine, nutritional and metabolic diseases complicating pregnancy, unspecified trimester; E87.1 Hypo-osmolality and hyponatremia; O26.899 Other specified pregnancy related conditions, unspecified trimester; R19.7 Diarrhea, unspecified; O99.619 Diseases of the digestive system complicating pregnancy, unspecified trimester; K59.09 Other constipation; Z3A.00 Weeks of gestation of pregnancy not specified
CPT/HCPCS: 99283; 96361; 96374; 36415; 84702; 85025; 80053; 81001; J2765; J7030

== ENCOUNTER 2019-09-26 22:15 | Emergency (ER) | payer MEDICAID | END 2019-09-27 06:33 | disposition left against medical advice (07) | LOC: ER 22:15 | DX: Z53.21 Procedure and treatment not carried out due to patient leaving prior to being seen by health care provider (principal) ==

== ENCOUNTER 2019-09-27 07:01 | Emergency (ER) | payer MEDICAID ==
[2019-09-27] MEDS ORDERED: NORMAL SALINE 1000 ML 1,000 ML IV ONE (08:01)
[2019-09-27 08:53] LABS: ABSOLUTE LYMPHOCYTES (AUTO) 1.7 10^3/uL (0.5-4.7); ABSOLUTE MONOCYTES (AUTO) 0.5 10^3/uL (0.1-1.4); ABSOLUTE NEUT (AUTO) 7.2 10^3/uL (1.7-8.2); BASOPHILS % (AUTO) 0.2 % (0-2); EOSINOPHILS % (AUTO) 0.2 % (0-6); HEMATOCRIT 39.6 % (36.0-47.0); HEMOGLOBIN 13.8 g/dL (12.0-15.5); LYMPHOCYTES % (AUTO) 17.8 % (13-45); MEAN CORPUSCULAR HEMOGLOBIN 30.1 pg (27.0-33.4); MEAN CORPUSCULAR HGB CONC 34.9 g/dL (32.0-36.0); MEAN CORPUSCULAR VOLUME 86 fl (80-97); MONOCYTES % (AUTO) 5.7 % (3-13); PLATELET COUNT 237 10^3/uL (150-450); RED CELL DISTRIBUTION WIDTH 13.1 % (11.5-14.0); SEGMENTED NEUTROPHILS % (AUTO) 76.1 % (42-78); TOTAL CELLS COUNTED % (AUTO) 100 %; WHITE BLOOD COUNT 9.4 10^3/uL (4.0-10.5)
[2019-09-27 09:16] LABS: ALBUMIN 4.1 g/dL (3.5-5.0); ALKALINE PHOSPHATASE 48 U/L (38-126); ANION GAP 10 (5-19); ASPARTATE AMINO TRANSFERASE 21 U/L (14-36); BILIRUBIN,TOTAL 0.7 mg/dL (0.2-1.3); BLOOD UREA NITROGEN 10 mg/dL (7-20); CALCIUM 9.5 mg/dL (8.4-10.2); CARBON DIOXIDE 24 mmol/L (22-30); CHLORIDE 104 mmol/L (98-107); GLUCOSE 97 mg/dL (75-110); POTASSIUM 3.9 mmol/L (3.6-5.0); TOTAL PROTEIN 7.6 g/dL (6.3-8.2)
[2019-09-27] MEDS ORDERED: DEXTROSE 5%-LACTATED RINGERS 1,000 ML IV ONE ×2 (09:45→13:04)
[2019-09-27] MEDS ORDERED: METOCLOPRAMIDE HCL INJ/PF 10 MG/2 ML SDV IV ONE (09:46)
[2019-09-27] MEDS ORDERED: MAG HYDROX/AL HYDROX/SIMETH SUSP 30 ML UDCUP PO ONE (09:47)
[2019-09-27] MEDS ORDERED: FAMOTIDINE INJ/PF 20 MG/2 ML SDV IV ONE (09:47)
--- NOTE | 2019-09-27 09:53 | ER Document Report ---
ED General - General Chief Complaint: Vomiting Stated Complaint: ,VOMITING Time Seen by Provider: 09/27/19 09:08 TRAVEL OUTSIDE OF THE [place] IN LAST 30 DAYS: No - HPI Notes: Chief complaint: associated vomiting HPI: 29-year-old female 3 para 1 AB 1 at approximately 14 weeks gestation with no care yet seen here a few days ago by another provider for associated vomiting now returns with ongoing symptoms. Patient was improved at time of that visit with IV normal saline and was sent out on likely just. She has Medicaid and said unfortunately they have not approved this prescription for her yet and so she is using only [id number] medications. She continues to vomit multiple times each day and is had very little oral intake. She complains of severe dyspepsia with burning sensation in center of chest up into the back of her throat particularly after vomiting. She denies fever. She denies dysuria. She denies back pain. She denies contractions. She denies vaginal bleeding. She denies vaginal discharge. Past medical history is otherwise unremarkable. She has no known allergies and takes no regular medications. She is a non-smoker. Does not currently consume alcohol. Previous appendectomy. - Related Data Allergies/Adverse Reactions: No Known Allergies Allergy (Verified 09/27/19 07:48) Past Medical History - General Information source: Patient, [facility] Records - Social History Smoking Status: Never Smoker Chew tobacco use (# tins/day): No Frequency of alcohol use: None Drug Abuse: None Family History: None, Reviewed & Not Pertinent Patient has homicidal ideation: No Renal/ Medical History: Denies: Hx Peritoneal Dialysis Past Surgical History: Reports: Hx Appendectomy, Hx Oral Surgery - wisdom teeth - Immunizations Hx Diphtheria, Pertussis, Tetanus Vaccination: Yes Review of Systems - Review of Systems Notes: Constitutional: Negative for fever. HENT: Negative for sore throat. Eyes: Negative for visual changes. Cardiovascular: Negative for chest pain. Respiratory: Negative for shortness of breath. Gastrointestinal: As per HPI. Genitourinary: Negative for dysuria. Musculoskeletal: Negative for back pain. Skin: Negative for rash. Neurological: Negative for headaches, weakness or numbness. 10 point ROS negative except as marked above and in HPI. Physical Exam - Vital signs Vitals: Temp Pulse Resp BP Pulse Ox 98.0 F 117 H 18 104/65 98 09/27/19 07:13 09/27/19 07:13 09/27/19 07:13 09/27/19 07:13 09/27/19 07:13 - Notes Notes: GENERAL: Slender female approximately stated age appearing in no acute distress. SKIN: Good turgor no rashes. HEAD: Normocephalic atraumatic. EYES: PERRLA. EOMI. Conjunctivae and sclerae clear. EARS: CANALS AND TMS CLEAR. NOSE: CLEAR. MOUTH: Moist mucosa. Good dentition. No stridor or edema. No drooling. NECK: Supple. No masses or thyromegaly. No adenopathy. Carotids 2+ without bruits. No JVD. BACK: Symmetrical without tenderness. CHEST: Respirations unlabored. Breath sounds clear and symmetrical. HEART: Regular rhythm. No murmur gallop or rub. ABDOMEN: Uterus is enlarged consistent with dates. Soft nontender without organomegaly or rebound. Bowel sounds normally active. No bruits. GENITALIA: Deferred. EXTREMITIES: No edema. No calf tenderness. Cap refill less than 1.5 seconds. Dorsalis pedis and posterior tibial pulses 3+ and symmetrical. NEUROLOGICAL: GCS 15. Alert and oriented x3. Normal gait. Fluent speech. Cranial nerves II through XII intact. Sensorimotor and cerebellar normal. Normal tone. PSYCHIATRIC: Appropriate affect. Course - Re-evaluation Re-evalutation: 09/27/19 15:28 Patient received 3 L of IV crystalloid in the emergency department. She was initially treated with oral Maalox and IV Pepcid and also received IV Reglan and subsequently IV Zofran. She had some ketonuria with otherwise unremarkable la bs. Pelvic ultrasound showed single viable IUP at 15 weeks EGA. Patient subsequently tolerated p.o. fluids here. She will be discharged for follow-up with [facility] OB clinic. Findings, clinical impression and plan of treatment have been discussed with patient/family. Understanding of current findings and recommendations has been acknowledged by them and there is agreement regarding disposition and follow-up. - Vital Signs Vital signs: Temp Pulse Resp BP Pulse Ox 98.7 F 76 16 102/50 L 100 09/27/19 12:29 09/27/19 12:29 09/27/19 12:29 09/27/19 12:29 09/27/19 12:29 - Laboratory Result Diagrams: 09/27/19 08:32 09/27/19 08:32 Laboratory results interpreted by me: 09/27/19 09/27/19 08:32 09:49 Creatinine 0.44 L Urine Protein 100 H Urine Ketones 80 H Urine Urobilinogen 4.0 H Ur Leukocyte Esterase TRACE H Urine HCG, Qual POSITIVE H Discharge - Discharge Clinical Impression: Hyperemesis of Condition: Stable Disposition: HOME, SELF-CARE Instructions: Antinausea Medication ([facility]) Additional Instructions: Hyperemesis Gravidarum Hyperemesis gravidarum is the medical term for severe vomiting during . We don't know exactly why it occurs, but it's a common problem. Dehydration can occur. This reduces blood flow to the placenta, decreasing the baby's nourishment. The baby will also become dehydrated. There can be harmful changes in blood sodium, potassium, or acid balance. Our goal is to correct, and prevent, dehydration. For severe cases, we give IV fluids. Antinausea medication will be prescribed. (Don't be concerned about " defects" -- the risk to you and your baby from the hyperemesis is the biggest problem. The antinausea medication is very safe at this stage of .) Call the doctor if you have vaginal bleeding, abdominal pain, severe lightheadedness or weakness, or other alarming symptoms. Follow-up with health department OB clinic within the next 1 week. Take prescribed medications as instructed. Prescriptions: Famotidine [Pepcid 20 mg Tablet] 20 mg PO DAILY #12 tablet Metoclopramide HCl [Reglan 10 mg Tablet] 10 mg PO ACHS #120 tablet Referrals: [facility] [Provider Group] - Follow up as needed
[2019-09-27 10:13] LABS: APPEARANCE,URINE SLIGHTLY-CLOUDY; BILIRUBIN,URINE NEGATIVE (NEGATIVE); GLUCOSE, URINE NEGATIVE (NEGATIVE); KETONES,URINE 80 mg/dL (NEGATIVE); LEUKOCYTE ESTERASE,URINE TRACE (NEGATIVE); NITRITE,URINE NEGATIVE (NEGATIVE); PROTEIN,URINE 100 mg/dL (NEGATIVE); URINE SPECIFIC GRAVITY 1.023
[2019-09-27 10:14] LABS: COLOR,URINE DARK YELLOW
[2019-09-27] MEDS ORDERED: ONDANSETRON HCL INJ/PF 4 MG/2 ML SDV IV ONE ×2 (13:05→13:07)
--- NOTE | 2019-09-27 14:32 | RADIOLOGY REPORT (SQ) ---
EXAM DESCRIPTION: U/S OB 14+ TRNABD 1GES W/O DOP IMAGES COMPLETED DATE/TIME: 09/27/2019 1:57 pm REASON FOR STUDY: 14 wk. vomiting COMPARISON: None. TECHNIQUE: Static and Dynamic grayscale imaging performed of gravid uterus using transabdominal appr oach. Additional selected color Doppler and spectral images recorded. All stored on PACS. LIMITATIONS: None. FINDINGS: FETUSES SEEN:1 EGA: 15 weeks 0 days Calculated using BPD,FL,HC,AC documented on images. No significant discrepancy with clinical dates. CORDELIA: 03/20/2020 EFW: Not calculated. Grams LVP: 3.1 x 2.3 cm PLACENTA: Anterior grade 1 PRESENTATION: Variable ANATOMY: HEART RATE: 144 beats per minute. Complete anatomical survey was not performed. MATERNAL ADNEXA: A 2.6 cm right ovarian cyst was seen. CERVICAL LENGTH: 2.3 cm. Closed. OTHER: No other significant finding. IMPRESSION: LIVING INTRAUTERINE . ESTIMATED GESTATIONAL AGE 15 weeks 0 days NO VISUALIZED ANOMALIES. Trimester of : Second trimester - 13 weeks 1 day to 27 weeks 6 days. TECHNICAL DOCUMENTATION: JOB ID: [id number] 2010 [employer]- All Rights Reserved Reading location - IP/workstation name: [email or web address]
[2019-09-27 16:12] VITALS: BP 110/70
== END 2019-09-27 16:12 | disposition home or self-care (01) ==
LOC: ER 07:01
DX: O21.0 Mild hyperemesis gravidarum (principal); O26.892 Other specified pregnancy related conditions, second trimester; R10.13 Epigastric pain; Z3A.15 15 weeks gestation of pregnancy
CPT/HCPCS: 99284; 96361; 96374; 96375; 36415; 85025; 81025; 80053; 81001; 76805; J3490; J2765; J2405; J7121; J7030; S0028

== ENCOUNTER 2020-02-06 14:02 | Outpatient (CLI) | payer MEDICAID ==
[2020-02-06 15:26] LABS: APPEARANCE,URINE SLIGHTLY-CLOUDY; BILIRUBIN,URINE NEGATIVE (NEGATIVE); CALCIUM OXALATE CRYSTALS,URINE FEW /HPF; COLOR,URINE AMBER; GLUCOSE, URINE NEGATIVE (NEGATIVE); KETONES,URINE NEGATIVE (NEGATIVE); LEUKOCYTE ESTERASE,URINE LARGE (NEGATIVE); NITRITE,URINE NEGATIVE (NEGATIVE); PROTEIN,URINE 100 mg/dL (NEGATIVE); URINE SPECIFIC GRAVITY 1.026
[2020-02-06] MEDS ORDERED: RINGERS SOLUTION,LACTATED 1,000 ML IV PRN (15:30)
[2020-02-06] MEDS ORDERED: RINGERS SOLUTION,LACTATED 1,000 ML IV ONE (15:30)
[2020-02-06] MEDS ORDERED: CEFTRIAXONE INJ 1000 MG VIAL IV ONE (15:41)
[2020-02-06 15:45] LABS: URINE AMPHETAMINES SCREEN NEGATIVE; URINE BARBITURATES SCREEN NEGATIVE; URINE BENZODIAZEPINES SCREEN NEGATIVE; URINE COCAINE SCREEN NEGATIVE; URINE MARIJUANA (THC) SCREEN NEGATIVE; URINE METHADONE SCREEN NEGATIVE; URINE PHENCYCLIDINE SCREEN NEGATIVE
[2020-02-06] MEDS ORDERED: BETAMET ACET/BETAMET NA INJ 6 MG/1 ML IM ONE (16:20)
[2020-02-06] MEDS ORDERED: CEFTRIAXONE 1 GM/D5W RTU 1 GM/50 ML RTUPB IV ONE ×2 (16:30→16:45)
[2020-02-06] MEDS ORDERED: BETAMET ACET/BETAMET NA INJ 6 MG/1 ML ONE (16:30)
--- NOTE | 2020-02-06 16:58 | RADIOLOGY REPORT (SQ) ---
EXAM DESCRIPTION: U/S OB LIMITED IMAGES COMPLETED DATE/TIME: 02/06/2020 3:30 pm REASON FOR STUDY: Cervical length for contractions COMPARISON: 09/27/2019 TECHNIQUE: Limited transabdominal and transvaginal grayscale ultrasound for evaluation of specific r equested obstetrical parameters. LIMITATIONS: None. FINDINGS: CERVICAL LENGTH: 1.7 cm there is funneling of the internal cervical os. No fluid within the endocervical canal. AUDI: 16.9 cm. FHR: 135 beats per minute. PRESENTATION: Cephalic. PLACENTA: Anterior ANATOMY: Not assessed OTHER: No other significant findings. IMPRESSION: LIMITED OBSTETRICAL ULTRASOUND WITH MEASURED PARAMETERS DELINEATED ABOVE. Trimester of : Third trimester - 28 weeks to delivery. TECHNICAL DOCUMENTATION: JOB ID: [id number] 2010 [employer]- All Rights Reserved Reading location - IP/workstation name: [email or web address]
--- NOTE | 2020-02-06 18:27 | Non Stress Test Report ---
Non Stress Test Datetime Report Generated by CPN: 02/06/2020 18:26 DEMOGRAPHIC EGA NST: 33.4 INDICATION Indication for Study (NST) Other: cramping w/ hx PTL, s/sx UTI VITAL SIGNS Temperature - NST: 98.2 Pulse - NST: 80 RESP - NST: 18 NBPSYS NST: 98 NBPDIA NST: 54 MONITORING Monitor Explained: Monitor Explained; Test Explained; Patient Verbalized Understanding Time on Monitor: 02/06/2020 15:30 Time off Monitor: 02/06/2020 16:00 NST Duration: 30 NST INTERVENTIONS NST Interventions: PO Hydration; IV Fluids Physician Notified NST: Rosy Salmeron/Dr Rell BABY A: [id number] BABY A Movement : Present Contraction Frequency : 0 FHR Baseline : 130 Accelerations : 15X15 Decelerations : None Variability : Moderate 6-25bpm NST Review: Meets Criteria for Reactive NST NST Review and Verified By : Ki, RN NST Results: Reactive NST REPORT Report Trigger: Send Report
== END 2020-02-06 17:54 | disposition home or self-care (01) ==
LOC: LC 14:02
PROVIDERS: ATTEND Obstetrics & Gynecology
DX: O23.43 Unspecified infection of urinary tract in pregnancy, third trimester (principal); O26.893 Other specified pregnancy related conditions, third trimester; E86.0 Dehydration; Z3A.33 33 weeks gestation of pregnancy
CPT/HCPCS: 59025; 87086; 81001; 80307; 76815; J0702; J0696

== ENCOUNTER 2020-02-07 16:47 | Outpatient (CLI) | payer MEDICAID ==
[2020-02-07] MEDS ORDERED: BETAMET ACET/BETAMET NA INJ 6 MG/1 ML ONE (16:56)
[2020-02-07] MEDS ORDERED: BETAMET ACET/BETAMET NA INJ 6 MG/1 ML IM ONE (17:05)
== END 2020-02-07 17:25 | disposition home or self-care (01) ==
LOC: LC 16:47
PROVIDERS: ATTEND Obstetrics & Gynecology Gynecology
DX: O23.43 Unspecified infection of urinary tract in pregnancy, third trimester (principal); O26.893 Other specified pregnancy related conditions, third trimester; E86.0 Dehydration; Z3A.33 33 weeks gestation of pregnancy
CPT/HCPCS: 59025; J0702

== ENCOUNTER 2020-02-18 17:47 | Inpatient (IN) | payer MEDICAID ==
[2020-02-18] MEDS ORDERED: RINGERS SOLUTION,LACTATED 1,000 ML IV ONE (18:26)
[2020-02-18] MEDS ORDERED: RINGERS SOLUTION,LACTATED 1,000 ML IV PRN (18:26)
[2020-02-18] MEDS ORDERED: PENICILLIN G POTASSIUM 5,000,000 UNIT in DEXTROSE 5%-WATER 100 ML IV ONE (18:26)
[2020-02-18] MEDS ORDERED: PENICILLIN G-K 5 MILLION UNIT VIAL ONE ×2 (18:35→22:27)
[2020-02-18] MEDS ORDERED: LIDOCAINE 1% INJ-PF (10 MG/ML) 30 ML SDV ONE (18:35)
[2020-02-18] MEDS ORDERED: OXYTOCIN 10 UNIT/ML VIAL ONE (18:35)
[2020-02-18] MEDS ORDERED: MISOPROSTOL 0.2 MG TABLET ONE (18:35)
[2020-02-18] MEDS ORDERED: OXYTOCIN/0.9 % SODIUM CHLORIDE 0 UNIT/0 ML RTUINJ ONE (18:35)
[2020-02-18 18:39] LABS: APPEARANCE,URINE SLIGHTLY-CLOUDY; BILIRUBIN,URINE NEGATIVE (NEGATIVE); COLOR,URINE AMBER; GLUCOSE, URINE NEGATIVE (NEGATIVE); KETONES,URINE TRACE mg/dL (NEGATIVE); LEUKOCYTE ESTERASE,URINE NEGATIVE (NEGATIVE); NITRITE,URINE NEGATIVE (NEGATIVE); PROTEIN,URINE 100 mg/dL (NEGATIVE); URINE SPECIFIC GRAVITY 1.032
[2020-02-18] MEDS ORDERED: MAG HYDROX/AL HYDROX/SIMETH SUSP 30 ML UDCUP ONE ×2 (18:43→23:17)
[2020-02-18 18:56] LABS: URINE AMPHETAMINES SCREEN NEGATIVE; URINE BARBITURATES SCREEN NEGATIVE; URINE BENZODIAZEPINES SCREEN NEGATIVE; URINE COCAINE SCREEN NEGATIVE; URINE MARIJUANA (THC) SCREEN NEGATIVE; URINE METHADONE SCREEN NEGATIVE; URINE PHENCYCLIDINE SCREEN NEGATIVE
[2020-02-18 19:03] LABS: ABSOLUTE EOSINOPHILS # (AUTO) 0.1 10^3/uL (0.0-0.6); ABSOLUTE LYMPHOCYTES (AUTO) 2.2 10^3/uL (0.5-4.7); ABSOLUTE MONOCYTES (AUTO) 0.9 10^3/uL (0.1-1.4); ABSOLUTE NEUT (AUTO) 10.1 10^3/uL (1.7-8.2); BASOPHILS % (AUTO) 0.2 % (0-2); EOSINOPHILS % (AUTO) 0.4 % (0-6); HEMATOCRIT 25.5 % (36.0-47.0); HEMOGLOBIN 8.1 g/dL (12.0-15.5); LYMPHOCYTES % (AUTO) 16.6 % (13-45); MEAN CORPUSCULAR HEMOGLOBIN 23.5 pg (27.0-33.4); MEAN CORPUSCULAR HGB CONC 31.7 g/dL (32.0-36.0); MEAN CORPUSCULAR VOLUME 74 fl (80-97); MONOCYTES % (AUTO) 6.8 % (3-13); PLATELET COUNT 298 10^3/uL (150-450); RED BLOOD COUNT 3.43 10^6/uL (3.72-5.28); RED CELL DISTRIBUTION WIDTH 19.7 % (11.5-14.0); TOTAL CELLS COUNTED % (AUTO) 100 %; WHITE BLOOD COUNT 13.2 10^3/uL (4.0-10.5)
[2020-02-18] MEDS: PENICILLIN G POTASSIUM 2,500,000 UNIT in DEXTROSE 5%-WATER 50 ML IV SCH (22:36)
[2020-02-18] MEDS ORDERED: MAG HYDROX/AL HYDROX/SIMETH SUSP 30 ML UDCUP PO ONE (23:13)
[2020-02-19] MEDS ORDERED: PENICILLIN G-K 5 MILLION UNIT VIAL ONE (02:13)
[2020-02-19] MEDS: PENICILLIN G POTASSIUM 2,500,000 UNIT in DEXTROSE 5%-WATER 50 ML IV SCH ×2 (02:30→06:36)
--- NOTE | 2020-02-19 06:29 | Admission Physical ---
Datetime Report Generated by CPN: 02/19/2020 06:28 CURRENT ADMISSION Chief Complaint: Uterine Contractions Indication for Induction: Not Applicable Admit Impression : , Intrauterine ; Active Labor Admit Plan: Admit to Unit; Initiate Labor Protocol; Observation/Evaluation Admit Plan- Other: patient had steroids last week for advanced dilation ALLERGIES Medication Allergies: No Medication Allergies: No Known Allergies (02/06/2020) Latex: No Latex Allergies Food Allergies: n/a Environmental Allergies: n/a OBSTETRICAL HISTORY EDC: 03/22/2020 00:00 : 3 Para: 1 Term: 0 : 1 SAB: 1 IAB: 0 Ectopic: 0 Livin Cesareans: 0 VBACs: 0 Multiple Births: 0 Gestational Diabetes: No Rh Sensitization: No Incompetent Cervix: No KAREN: No Infertility: No ART Treatment: No Uterine Anomaly: No IUGR: No Hx Previous C/S: No Macrosomia: No Hx Loss/Stillborn: No PIH: No Hx : No Placenta Previa/Abruption: No Depression/PP Depression: No PTL/PROM: Yes Post Hemorrhage: No Current Procedures: Ultrasound Obstetrical History Comments: G1- SAB 2007 G2- 32wk vaginal delivery in 2012 G3- current SEE RECORDS Alcohol: No Marijuana : No Cocaine: No Other Illicit Drugs: No Cigarettes: Never Smoker. [id number] MEDICAL HISTORY Diabetes: No Blood Transfusion: No Pulmonary Disease (Asthma, TB): No Breast Disease: No Hypertension: No Poison Information Specialist Surgery: No Heart Disease: No Hosp/Surgery: Yes Autoimmune Disorder: No Anesthetic Complications: No Kidney Disease: Yes Abnormal Pap Smear: No Neuro/Epilepsy: No Psychiatric Disorders: No Other Medical Diseases: No Hepatitis/Liver Disease: No Significant Family History: No Varicosities/Phlebitis: No Trauma/Violence : No Thyroid Dysfunction: No Medical History Comments: appendectomy, UTI this INFECTIOUS HISTORY Gonorrhea: No Genital Herpes: No Chlamydia: No Tuberculosis: No Syphilis: No Hepatitis: No HIV/AIDS Exposure: No Rash or Viral Illness: No HPV: No PHYSICAL EXAM General: Normal HEENT: Normal Neurologic: Normal Thyroid: Normal Heart: Normal Lungs: Normal Breast: Normal Back: Normal Abdomen: Normal Genitourinary Exam: Normal Extremities: Normal DTRs: Normal Pelvic Type: Adequate Vital Signs: Reviewed VAGINAL EXAM Dilatation: 4 Effacement: 75 Station: -3 MEMBRANES Pooling: Negative Membranes: Intact FETUS A EGA: 35.2 Monitoring: External US FHR- Baseline: 140 Accelerations: 15X15 Decelerations: None FHR Category: Category I Estimated Weight (gm): 2800 Presentation: Vertex Admit Comment: admit for observation. Will not attempt induction unless pt ruptures. PCN for GBS prophylaxis. Send GBS swab. PLANS FOR LABOR AND DELIVERY Labor and Delivery: None Pain Management: Natural; Medications; Epidural Feeding Preference: Breast Circumcision: N/A INFORMED CONSENT Signature: with User ID: [email or web address]
[2020-02-19] MEDS ORDERED: ONDANSETRON HCL INJ/PF 4 MG/2 ML SDV ONE (06:30)
[2020-02-19] MEDS ORDERED: ONDANSETRON HCL INJ/PF 4 MG/2 ML SDV IV ONE (06:31)
[2020-02-19] MEDS ORDERED: IRON SUCROSE COMPLEX INJ/PF 100 MG/5 ML SDV IV ONE (08:00)
--- NOTE | 2020-02-19 10:06 | Non Stress Test Report ---
Non Stress Test Datetime Report Generated by CPN: 02/19/2020 10:05 DEMOGRAPHIC EGA NST: 35.3 MONITORING Monitor Explained: Monitor Explained; Test Explained; Patient Verbalized Understanding Time on Monitor: 02/19/2020 09:00 Time off Monitor: 02/19/2020 09:30 NST Duration: 30 NST INTERVENTIONS NST Interventions: PO Hydration; Reposition Patient Physician Notified NST: Gila Pagan CNM BABY A: [id number] BABY A Movement : Present Contraction Frequency : occasional FHR Baseline : 145 Accelerations : 15X15 Decelerations : None Variability : Moderate 6-25bpm NST Review: Meets Criteria for Reactive NST NST Review and Verified By : Zohra Camp RNC NST Results: Reactive NST REPORT Report Trigger: Send Report
--- NOTE | 2020-02-19 10:38 | PDOC PROGRESS REPORT ---
Subjective Date:: 02/19/20 Subjective:: pt came to L&D last night with c/o contractions. She was admitted and treated as active labor. GBS unknown and collected, she has been treated with prophylactic abx overnight with anticipation of delivery. She had negative actim prom, and denies leaking fluid. She denies painful contractions this am. Contraction pattern is not consistent with labor this am and pt reports rare contractions now. [facility] and feel comfortable going home at this point. She is aware that she needs to f/u if contractions start back and become regular and less than 10 min apart for now. She was treated with 2 doses of BMTZ on 02/06 and 02/07. Reason For Visit: Physical Exam - Physical Exam Vital Signs: Intake & Output 02/18/20 02/19/20 02/20/20 06:59 06:59 06:59 Weight 97 kg General appearance: PRESENT: no acute distress, cooperative Musculoskeletal exam: PRESENT: ambulatory, full ROM, normal inspection Neurological exam: PRESENT: alert - Obstetrical Exam External Genitalia: normal Dilation (cm): 5 Effacement (%): 80 Station: -1 Tender: No Result Laboratory Results: 02/18/20 18:30 02/18/20 02/18/20 02/18/20 17:55 18:30 18:30 WBC 13.2 H RBC 3.43 L Hgb 8.1 L Hct 25.5 L MCV 74 L MCH 23.5 L MCHC 31.7 L RDW 19.7 H Plt Count 298 Seg Neutrophils % 76.0 Urine Color JOSE ALEJANDRO Urine Appearance SLIGHTLY-CLOUDY Urine pH 5.0 Ur Specific [place] 1.032 Urine Protein 100 H Urine Glucose (UA) NEGATIVE Urine Ketones TRACE H Urine Blood NEGATIVE Urine Nitrite NEGATIVE Ur Leukocyte Esterase NEGATIVE Urine WBC (Auto) 3 Urine RBC (Auto) 0 Blood Type B POSITIVE Antibody Screen NEGATIVE Assessment & Plan - Diagnosis (1) uterine contractions in third trimester, antepartum Is this a current diagnosis for this admission?: Yes (2) History of delivery, currently in third trimester Is this a current diagnosis for this admission?: Yes - Time Time Spent with patient: 15-24 minutes Medications reviewed and adjusted accordingly: Yes Anticipated discharge: Home Anticipated DC Timeframe: within 24 hours - Plan Summary Plan Summary: Pt was given strict instruction for pelvic rest, and to f/u immediately if she has contractions that are less than 10 min apart, bleeding, leaking of fluid or pressure. She has an appt at [facility] on 02/21 for eval and an additional dose prn. Plan reviewed with Dr. Weber and he has agreed.
--- NOTE | 2020-02-19 10:42 | PDOC DISCHARGE SUMMARY ---
Impression - Admit/DC Date/PCP Admission Date/Primary Care Provider: 02/18/20 18:17 TIP MAIER MD Discharge Date: 02/19/20 - Discharge Diagnosis (1) uterine contractions in third trimester, antepartum Is this a current diagnosis for this admission?: Yes (2) History of delivery, currently in third trimester Is this a current diagnosis for this admission?: Yes - Additional Information Resuscitation Status: Full Code Discharge Diet: Regular Discharge Activity: Pelvic Rest Referrals: TIP MAIER MD [Primary Care Provider] - Home Medications: Famotidine [Pepcid 20 mg Tablet] 20 mg PO DAILY #12 tablet 09/27/19 History of Present Illiness History of Present Illness: MERT BAL is a 29 year old female Physical Exam - Physical Exam Vital Signs: Intake & Output 02/18/20 02/19/20 02/20/20 06:59 06:59 06:59 Weight 97 kg - Obstetrical Exam External Genitalia: normal Station: -1 Results Laboratory Results: WBC 13.2 10^3/uL (4.0-10.5) H 02/18/20 18:30 RBC 3.43 10^6/uL (3.72-5.28) L 02/18/20 18:30 Hgb 8.1 g/dL (12.0-15.5) L 02/18/20 18:30 Hct 25.5 % (36.0-47.0) L 02/18/20 18:30 MCV 74 fl (80-97) L 02/18/20 18:30 MCH 23.5 pg (27.0-33.4) L 02/18/20 18:30 MCHC 31.7 g/dL (32.0-36.0) L 02/18/20 18:30 RDW 19.7 % (11.5-14.0) H 02/18/20 18:30 Plt Count 298 10^3/uL (150-450) 02/18/20 18:30 Lymph % (Auto) 16.6 % (13-45) 02/18/20 18:30 Iron % (Auto) 6.8 % (3-13) 02/18/20 18:30 Eos % (Auto) 0.4 % (0-6) 02/18/20 18:30 Baso % (Auto) 0.2 % (0-2) 02/18/20 18:30 Absolute Neuts (auto) 10.1 10^3/uL (1.7-8.2) H 02/18/20 18:30 Absolute Lymphs (auto) 2.2 10^3/uL (0.5-4.7) 02/18/20 18:30 Absolute Monos (auto) 0.9 10^3/uL (0.1-1.4) 02/18/20 18:30 Absolute Eos (auto) 0.1 10^3/uL (0.0-0.6) 02/18/20 18:30 Absolute Basos (auto) 0.0 10^3/uL (0.0-0.2) 02/18/20 18:30 Seg Neutrophils % 76.0 % (42-78) 02/18/20 18:30 Urine Color JOSE ALEJANDRO 02/18/20 17:55 Urine Appearance SLIGHTLY-CLOUDY 02/18/20 17:55 Urine pH 5.0 (5.0-9.0) 02/18/20 17:55 Ur Specific [place] 1.032 02/18/20 17:55 Urine Protein 100 mg/dL (NEGATIVE) H 02/18/20 17:55 Urine Glucose (UA) NEGATIVE mg/dL (NEGATIVE) 02/18/20 17:55 Urine Ketones TRACE mg/dL (NEGATIVE) H 02/18/20 17:55 Urine Blood NEGATIVE (NEGATIVE) 02/18/20 17:55 Urine Nitrite NEGATIVE (NEGATIVE) 02/18/20 17:55 Urine Bilirubin NEGATIVE (NEGATIVE) 02/18/20 17:55 Urine Urobilinogen 4.0 mg/dL (<2.0) H 02/18/20 17:55 Ur Leukocyte Esterase NEGATIVE (NEGATIVE) 02/18/20 17:55 Urine WBC (Auto) 3 /HPF 02/18/20 17:55 Urine RBC (Auto) 0 /HPF 02/18/20 17:55 Squamous Epi Cells Auto 2 /HPF 02/18/20 17:55 Urine Mucus (Auto) MANY /LPF 02/18/20 17:55 Urine Ascorbic Acid NEGATIVE (NEGATIVE) 02/18/20 17:55 Urine Opiates Screen NEGATIVE 02/18/20 17:55 Urine Methadone Screen NEGATIVE 12/06/20 17:55 Ur Barbiturates Screen NEGATIVE 02/18/20 17:55 Ur Phencyclidine Scrn NEGATIVE 02/18/20 17:55 Ur Amphetamines Screen NEGATIVE 02/18/20 17:55 U Benzodiazepines Scrn NEGATIVE 02/18/20 17:55 Urine Cocaine Screen NEGATIVE 02/18/20 17:55 U Marijuana (THC) Screen NEGATIVE 02/18/20 17:55 RPR NONREACTIVE (NONREACTIVE) 02/18/20 18:30 Blood Type B POSITIVE 02/18/20 18:30 Antibody Screen NEGATIVE 02/18/20 18:30 Plan Plan of Treatment: plan is sched for an appt at [facility] on 02/21 for eval Time Spent: Less than 30 Minutes Stroke Is this a Stroke Patient?: No Reason(s) for not prescribing Anti-thrombolytic therapy:: Not indicated Acute Heart Failure Is this a Heart Failure Patient?: No
== END 2020-02-19 10:36 | disposition home or self-care (01) | DRG 833 ==
LOC: LC 17:47 → LR 18:17
PROVIDERS: ADMIT Obstetrics & Gynecology; ATTEND Obstetrics & Gynecology
DX: O60.03 Preterm labor without delivery, third trimester (principal); Z3A.35 35 weeks gestation of pregnancy
CPT/HCPCS: 36415; 80307; 81001; 85025; 86592; 86850; 86900; 86901; 87081; 94760; J1756; J2405; J2540; J2590; J3490; J7060

== ENCOUNTER 2020-02-27 19:30 | Outpatient (CLI) | payer MEDICAID ==
[2020-02-27 20:08] LABS: APPEARANCE,URINE CLEAR; BILIRUBIN,URINE NEGATIVE (NEGATIVE); COLOR,URINE YELLOW; GLUCOSE, URINE NEGATIVE (NEGATIVE); KETONES,URINE NEGATIVE (NEGATIVE); LEUKOCYTE ESTERASE,URINE NEGATIVE (NEGATIVE); NITRITE,URINE NEGATIVE (NEGATIVE); PROTEIN,URINE 30 mg/dL (NEGATIVE); URINE SPECIFIC GRAVITY 1.023
[2020-02-27 20:30] LABS: URINE AMPHETAMINES SCREEN NEGATIVE; URINE BARBITURATES SCREEN NEGATIVE; URINE BENZODIAZEPINES SCREEN NEGATIVE; URINE COCAINE SCREEN NEGATIVE; URINE MARIJUANA (THC) SCREEN NEGATIVE; URINE METHADONE SCREEN NEGATIVE; URINE PHENCYCLIDINE SCREEN NEGATIVE
== END 2020-02-27 22:13 | disposition home or self-care (01) ==
LOC: LC 19:30
PROVIDERS: ATTEND Obstetrics & Gynecology
DX: O47.03 False labor before 37 completed weeks of gestation, third trimester (principal); Z3A.36 36 weeks gestation of pregnancy
CPT/HCPCS: 59025; 80307; 81001

== ENCOUNTER 2020-03-09 01:26 | Inpatient (IN) | payer MEDICAID ==
--- NOTE | 2020-03-09 01:29 | Non Stress Test Report ---
Non Stress Test Datetime Report Generated by CPN: 03/09/2020 01:29 DEMOGRAPHIC EGA NST: 36.4 INDICATION Indication for Study (NST) Other: lc VITAL SIGNS Temperature - NST: 98.8 Pulse - NST: 77 RESP - NST: 17 NBPSYS NST: 113 NBPDIA NST: 58 MONITORING Monitor Explained: Monitor Explained; Test Explained; Patient Verbalized Understanding Time on Monitor: 02/27/2020 19:44 Time off Monitor: 02/27/2020 21:22 NST Duration: 98 NST INTERVENTIONS NST Interventions: PO Hydration; Reposition Patient Physician Notified NST: Dr Rell BABY A: [id number] BABY A Movement : Present Contraction Frequency : irregular FHR Baseline : 135 Accelerations : 15X15 Decelerations : None Variability : Moderate 6-25bpm NST Review: Meets Criteria for Reactive NST NST Review and Verified By : Racheal Du RN NST Results: Reactive NST REPORT Report Trigger: Send Report
[2020-03-09] MEDS ORDERED: RINGERS SOLUTION,LACTATED 1,000 ML IV ONE (01:49)
[2020-03-09] MEDS ORDERED: OXYTOCIN 10 UNIT/ML VIAL ONE (01:50)
[2020-03-09] MEDS ORDERED: MISOPROSTOL 0.2 MG TABLET ONE (01:50)
[2020-03-09] MEDS ORDERED: LIDOCAINE 1% INJ-PF (10 MG/ML) 30 ML SDV ONE (01:51)
[2020-03-09] MEDS ORDERED: OXYTOCIN/0.9 % SODIUM CHLORIDE 30 UNIT/500 ML RTUINJ ONE (01:51)
[2020-03-09 02:05] LABS: APPEARANCE,URINE CLOUDY; BILIRUBIN,URINE NEGATIVE (NEGATIVE); COLOR,URINE AMBER; GLUCOSE, URINE NEGATIVE (NEGATIVE); KETONES,URINE 20 mg/dL (NEGATIVE); LEUKOCYTE ESTERASE,URINE LARGE (NEGATIVE); NITRITE,URINE NEGATIVE (NEGATIVE); PROTEIN,URINE 100 mg/dL (NEGATIVE); URINE SPECIFIC GRAVITY 1.024
[2020-03-09 02:24] LABS: URINE AMPHETAMINES SCREEN NEGATIVE; URINE BARBITURATES SCREEN NEGATIVE; URINE BENZODIAZEPINES SCREEN NEGATIVE; URINE COCAINE SCREEN NEGATIVE; URINE MARIJUANA (THC) SCREEN NEGATIVE; URINE METHADONE SCREEN NEGATIVE; URINE PHENCYCLIDINE SCREEN NEGATIVE
[2020-03-09] MEDS ORDERED: EPHEDRINE SULFATE INJ 50 MG/1 ML AMPULE ONE (02:46)
[2020-03-09] MEDS ORDERED: ROPIVACAINE HCL 0.2% INJ/PF (2 MG/ML) 20 ML SDV ONE (02:47)
[2020-03-09] MEDS ORDERED: FENTANYL/BUPIVACAINE/NS/PF 300 MCG/150 ML RTUINJ EPI ONE (02:47)
[2020-03-09] MEDS: RINGERS SOLUTION,LACTATED 1,000 ML IV PRN ×2 (02:59→08:30)
[2020-03-09 03:39] LABS: ABSOLUTE MONOCYTES (AUTO) 0.8 10^3/uL (0.1-1.4); ABSOLUTE NEUT (AUTO) 6.7 10^3/uL (1.7-8.2); BASOPHILS % (AUTO) 0.4 % (0-2); EOSINOPHILS % (AUTO) 0.3 % (0-6); HEMATOCRIT 23.8 % (36.0-47.0); LYMPHOCYTES % (AUTO) 20.6 % (13-45); MEAN CORPUSCULAR HEMOGLOBIN 22.1 pg (27.0-33.4); MEAN CORPUSCULAR HGB CONC 31.8 g/dL (32.0-36.0); MONOCYTES % (AUTO) 8.1 % (3-13); PLATELET COUNT 305 10^3/uL (150-450); RED BLOOD COUNT 3.42 10^6/uL (3.72-5.28); RED CELL DISTRIBUTION WIDTH 22.9 % (11.5-14.0); SEGMENTED NEUTROPHILS % (AUTO) 70.6 % (42-78); TOTAL CELLS COUNTED % (AUTO) 100 %; WHITE BLOOD COUNT 9.5 10^3/uL (4.0-10.5)
[2020-03-09 03:40] LABS: HEMOGLOBIN 7.6 g/dL (12.0-15.5); MEAN CORPUSCULAR VOLUME 70 fl (80-97)
[2020-03-09] MEDS ORDERED: NORMAL SALINE 250 ML IV PRN (04:07)
--- NOTE | 2020-03-09 06:40 | Admission Physical ---
Datetime Report Generated by CPN: 03/09/2020 06:39 CURRENT ADMISSION Hx Assessment: The History has been Reviewed and is Current Chief Complaint: Uterine Contractions Chief Complaint Other: at 38.1 wks EGA in active labor. Painful regular contractions every 3-4 minutes and advancely dilated Indication for Induction: Not Applicable Admit Impression : Term, Intrauterine Admit Plan: Admit to Unit; Initiate Labor Protocol Admit Plan- Other: patient had steroids last week for advanced dilation ALLERGIES Medication Allergies: No Medication Allergies: No Known Allergies (03/09/2020) Latex: No Latex Allergies Food Allergies: n/a Environmental Allergies: n/a OBSTETRICAL HISTORY EDC: 03/22/2020 00:00 : 3 Para: 1 Term: 0 : 1 SAB: 1 IAB: 0 Ectopic: 0 Livin Cesareans: 0 VBACs: 0 Multiple Births: 0 Gestational Diabetes: No Rh Sensitization: No Incompetent Cervix: No KAREN: No Infertility: No ART Treatment: No Uterine Anomaly: No IUGR: No Hx Previous C/S: No Macrosomia: No Hx Loss/Stillborn: No PIH: No Hx : No Placenta Previa/Abruption: No Depression/PP Depression: Yes PTL/PROM: Yes Post Hemorrhage: No Current Procedures: Ultrasound Obstetrical History Comments: G1- SAB 2007 G2- 32wk vaginal delivery in 2012 G3- current SEE RECORDS Alcohol: No Marijuana : No Cocaine: No Other Illicit Drugs: No Cigarettes: Never Smoker. 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, nausea, and feeling lonely INFECTIOUS HISTORY Gonorrhea: No Genital Herpes: No Chlamydia: No Tuberculosis: No Syphilis: No Hepatitis: No HIV/AIDS Exposure: No Rash or Viral Illness: No HPV: No PHYSICAL EXAM General: Normal HEENT: Normal Neurologic: Normal Thyroid: Normal Heart: Normal Lungs: Normal Breast: Normal Back: Normal Abdomen: Normal Genitourinary Exam: Normal Extremities: Normal DTRs: Normal Pelvic Type: Adequate Vital Signs: Reviewed VAGINAL EXAM Dilatation: 8 Effacement: 90 Station: -1 Contraction Comments: regular MEMBRANES Pooling: Negative Membranes: Intact FETUS A EGA: 38.1 Monitoring: External US FHR- Baseline: 135 Variability: Moderate 6-25bpm Accelerations: 15X15 Decelerations: None FHR Category: Category I Estimated Weight (gm): 2800 Presentation: Vertex Admit Comment: at 38.1 wks EGA in active labor -Admit to LDR in active labor -NPO and IVFs: LR at 125 cc/hr after 1 liter bolus LR -CEFM and toco -GBS negative -History of x1, plan for PLANS FOR LABOR AND DELIVERY Labor and Delivery: None Pain Management: Natural; Medications; Epidural Feeding Preference: Breast Circumcision: N/A INFORMED CONSENT Informed Consent Obtained: Vaginal Delivery; Section Delivery; Vacuum/Forceps Assist; Risks, Benefits and Alternatives Discussed Signature: with User ID: [email or web address] : with User ID: [email or web address]
[2020-03-09] MEDS ORDERED: IRON SUCROSE COMPLEX INJ/PF 100 MG/5 ML SDV IV ONE (09:00)
[2020-03-09] MEDS ORDERED: ONDANSETRON HCL INJ/PF 4 MG/2 ML SDV ONE (09:32)
[2020-03-09] MEDS ORDERED: ONDANSETRON HCL INJ/PF 4 MG/2 ML SDV IV ONE (09:34)
[2020-03-09] MEDS ORDERED: OXYTOCIN/0.9 % SODIUM CHLORIDE 30 UNIT/500 ML RTUINJ IV PRN ×2 (11:52→13:10)
[2020-03-09] MEDS ORDERED: FAMOTIDINE INJ/PF 20 MG/2 ML SDV IV ONE ×2 (12:02→12:04)
[2020-03-09] MEDS ORDERED: FAMOTIDINE 20 MG TABLET PO PRN (13:10)
[2020-03-09] MEDS ORDERED: BENZOCAINE/MENTHOL AEROSOL SPRAY 56 ML TOP PRN (13:10)
[2020-03-09] MEDS ORDERED: GLYCERIN/WITCH HAZEL LEAF 1 EACH MED..WIPE TP PRN (13:10)
[2020-03-09] MEDS ORDERED: ACETAMINOPHEN 325 MG TABLET PO PRN (13:10)
[2020-03-09] MEDS ORDERED: MAG HYDROX/AL HYDROX/SIMETH SUSP 30 ML UDCUP PO PRN (13:10)
[2020-03-09] MEDS ORDERED: DIPH/PERTUSS(ACELL)/TETANUS VAC/PF 0.5 ML SYR (>=10YO) IM PRN (13:10)
[2020-03-09] MEDS ORDERED: VARICELLA VACC/PF (1350 UNIT/0.5 ML) 0.5 ML VIAL SUBCUT PRN (13:10)
[2020-03-09] MEDS ORDERED: ACETAMINOPHEN 650 MG SUPP.RECT PR PRN (13:10)
[2020-03-09] MEDS ORDERED: ZOLPIDEM TARTRATE 5 MG TABLET PO PRN (13:10)
[2020-03-09] MEDS ORDERED: DIPHENHYDRAMINE HCL 25 MG CAPSULE PO PRN (13:10)
[2020-03-09] MEDS ORDERED: PSEUDOEPHEDRINE HCL 30 MG TABLET PO PRN (13:10)
[2020-03-09] MEDS ORDERED: MEASLES,MUMPS&RUBELLA VACC/PF 0.5 ML VIAL SUBCUT PRN (13:10)
[2020-03-09] MEDS ORDERED: DIBUCAINE 1% OINTMENT 28 GM TP PRN (13:10)
[2020-03-09] MEDS ORDERED: MAGNESIUM HYDROXIDE SUSP 30 ML UDCUP PO PRN (13:10)
[2020-03-09] MEDS ORDERED: ACETAMINOPHEN WITH CODEINE #3 TABLET PO PRN (13:10)
[2020-03-09] MEDS ORDERED: IBUPROFEN 800 MG TABLET ONE (14:43)
[2020-03-09] MEDS ORDERED: BENZOCAINE/MENTHOL AEROSOL SPRAY 56 ML ONE (14:43)
[2020-03-09] MEDS: IBUPROFEN 800 MG TABLET PO SCH ×2 (14:49→22:01)
[2020-03-09 16:23] LABS: APPEARANCE,URINE SLIGHTLY-CLOUDY; BILIRUBIN,URINE NEGATIVE (NEGATIVE); COLOR,URINE AMBER; GLUCOSE, URINE NEGATIVE (NEGATIVE); KETONES,URINE 80 mg/dL (NEGATIVE); LEUKOCYTE ESTERASE,URINE NEGATIVE (NEGATIVE); NITRITE,URINE NEGATIVE (NEGATIVE); PROTEIN,URINE 100 mg/dL (NEGATIVE); URINE SPECIFIC GRAVITY 1.029
--- NOTE | 2020-03-09 17:26 | Delivery Summary ---
Del Sum A-C Datetime Report Generated by CPN: 03/09/2020 17:26 DELIVERY PERSONNEL DELIVERY PERSONNEL: [id number] Delivery Doctor:: Richard Martinez MD Labor and Delivery Nurse:: Lali Calderon RNtin whiz machine operator Nurse:: Royce Brock RN Cutter In/FINANCIAL ADVOCATE: Camille Villavicencio, ST MATERNAL INFORMATION Delivery Anesthesia: Epidural Medications After Delivery: Pitocin 30 Units in 500ml NS/D5W Delivery QBL: 600 Maternal Complications: None LABOR SUMMARY EDC: 03/22/2020 00:00 No. Babies in Womb: 1 Attempted: No Labor Anesthesia: Epidural LABOR INFORMATION Reason for Induction: Not Applicable Onset of Labor: 03/09/2020 01:00 Complete Dilatation: 03/09/2020 12:27 Oxytocin: N/A Group B Beta Strep: 1 NO GROUP B STREPTOCOCCUS RECOVERED Antibiotics # of Doses: 0 Name of Antibiotic Given: N/A Steroids Given: Full Course Reason Steroids Not Administered: Maternal Indication MEMBRANES Membranes Rupture Method: Spontaneous Rupture of Membranes: 03/09/2020 08:19 Length of Rupture (hr): 4.65 Amniotic Fluid Color: Clear Amniotic Fluid Amount: Small Amniotic Fluid Odor: Normal STAGES OF LABOR Stage 1 hr: 11 Stage 1 min: 27 Stage 2 hr: 0 Stage 2 min: 31 Stage 3 hr: 0 Stage 3 min: 3 Total Time in Labor hr: 12 Total Time in Labor min: 1 VAGINAL DELIVERY Episiotomy: None Laceration #1: Vaginal Laceration Extension #1: N/A Other Laceration: Superficial Laceration Repair: Yes Laceration Repair Note: 2-0 vicryl running Sponge Count Correct: Yes Sharps Count Correct: Yes CSECTION DELIVERY Primary Indication: N/A Secondary Indication: N/A CSection Incidence: N/A Labor: N/A Elective: N/A CSection Incision: N/A BABY A INFORMATION Delivery Date/Time: 03/09/2020 12:58 Method of Delivery: Vaginal Nurse Controlled Delivery: No Born in Route : No : N/A Forceps: N/A Vacuum Extraction: N/A Shoulder Dystocia : No PRESENTATION/POSITION BABY A Presentation: Cephalic Cephalic Presentation: Vertex Vertex Position: Right Occipital Anterior Breech Presentation: N/A PLACENTA INFORMATION BABY A Placenta Delivery Time : 03/09/2020 13:01 Placenta Method of Delivery: Spontaneous Placenta Status: Delivered SCORES BABY A Heart Rate 1 min: >100 bpm Resp Effort 1 min: Slow, Irregular Reflex Irritability 1 min: Cough or Sneeze or Pulls Away Muscle Tone 1 min: Active Motion Color 1 min: Blue/Pale Resuscitation Effort 1 min: Tactile Stimulation SCORE 1 MIN: 7 Heart Rate 5 min: >100 bpm Resp Effort 5 min: Good Cry Reflex Irritability 5 min: Cough or Sneeze or Pulls Away Muscle Tone 5 min: Active Motion Color 5 min: Body [place], Extremities Blue Resuscitation Effort 5 min: Tactile Stimulation SCORE 5 MIN: 9 INFANT INFORMATION BABY A Gestational Age at Delivery: 38.1 Gestational Status: Early Term- 37- 38.6 Weeks Infant Outcome : Liveborn Infant Condition : Stable Infant Sex: Female IDENTIFICATION BABY A Verification Date/Time: 03/09/2020 13:29 ID Band Number: [id number] Mother's Name Verified: Yes Infant RN Verifying Infant: TMartin,RNC and MJorge,RNC WEIGHT/LENGTH BABY A Infant Birthweight (gm): 3516 Weight (lb): 7 Infant Weight (oz): 12 Infant Length (in): 19.25 Infant Length (cm): 48.90 CORD INFORMATION BABY A No. Cord Vessels: 3 Nuchal Cord : Around Neck x1, Loose Cord Blood Taken: Yes-For Storage (Mom's Blood type +) Infant Suction: Mouth ASSESSMENT BABY A Complications: None Physical Findings at Delivery: Within Normal Limits Respirations: Appears Normal Skin to Skin: Yes Skin to Skin Time (min): 115 Health Outcomes Liaison/ALS Called : No Care By: TMartin,RNC Transferred To: Remains with Mother BABY B INFORMATION : N/A SIGNATURES Signature: with User ID: [email or web address]
--- NOTE | 2020-03-09 17:26 | Birth Certificate Data ---
Cert Data Datetime Report Generated by CPN: 03/09/2020 17:26 CERTIFICATE DATA Delivery Provider: Richard Martinez MD (02/06/2020 15:07:Reba Rico RN) 47a. Care: Yes (02/06/2020 15:07:Alexandra Correa RN) 47b. Date of First Visit: 08/08/2019 00:00 (02/06/2020 15:07:Alexandra Correa RN) 47c. Date of Last Visit: 02/15/2020 00:00 (02/06/2020 15:07:Maddy Du RN) 47d. Number of Visits: 10 (02/06/2020 15:07:Maddy Du RN) 48a. Number of Prev Live Births: 1 (02/06/2020 15:07:Alexandra Correa RN) 48b. Now Livin (02/06/2020 15:07:Alexandra Correa RN) 48c. Live Births Now : 0 (02/06/2020 15:07:QS system process) 48d. Date of Last Live : 04/06/2012 00:00 (02/06/2020 15:07:Royce Brock RN) 48e. Losses: 1 (02/06/2020 15:07:Alexandra Correa RN) 48f. Date of Last Preg Loss: 03/15/2007 00:00 (02/06/2020 15:07:Alexandra Correa RN) RISK FACTORS IN THIS 49a. Diabetes: No (02/06/2020 15:07:Lali Calderon RN) 49b. Hypertension: No (02/06/2020 15:07:Lali Calderon RN) 49c. Previous Births: 1 (02/06/2020 15:07:Alexandra Correa RN) 49d. Stillborns: No (02/06/2020 15:07:Lali Calderon RN) 49d. IUGR: No (02/06/2020 15:07:Lali Calderon RN) 49e. Infertility Treatment: No (02/06/2020 15:07:Lali Calderon RN) 49f. Previous Cesareans: 0 (02/06/2020 15:07:Lali Calderon RN) Mother's Height 50b. Height Inches: 71 (03/09/2020 01:40:QS system process) Mother's Weight 51a. Pre- Weight (lbs): 200 (02/06/2020 15:07:Lali Calderon RN) 51b. Weight at Delivery (lbs): 200 (03/09/2020 01:40:QS system process) 52. Dt Last Normal Menses Began: 06/09/2019 00:00 (02/06/2020 15:07:Royce Brock RN) Infections Present/Treated 53a. Gonorrhea: No (02/06/2020 15:07:Lali Calderon RN) Results this Hospital Visit : Negative (02/06/2020 15:07:Alexandra Correa RN) 53b. Syphilis: No (02/06/2020 15:07:Lali Calderon RN) Results this Hospital Visit: NONREACTIVE (02/18/2020 18:30:QS system process) 53c. Chlamydia: No (02/06/2020 15:07:Lali Calderon RN) Results this Hospital Visit: Negative (02/06/2020 15:07:Alexandra Correa RN) 53d. Hepatitis B: No (02/06/2020 15:07:Lali Calderon RN) Results this Hospital Visit: Negative (02/06/2020 15:07:Alexandra Correa RN) 53e. Hepatitis C: Negative (02/06/2020 15:07:Maddy Du RN) 53h. Mother Tested for HBsAG: Yes (02/06/2020 15:07:Maddy Du RN) 53i. Date Tested: 08/25/2019 00:00 (02/06/2020 15:07:Maddy Du RN) 53j. Test Result: Negative (02/06/2020 15:07:Alexandra Correa RN) Obstetric Procedures 54a, b, c. Obstetric Procedures: Ultrasound (02/06/2020 15:07:Lali Calderon RN) Cigarette Smoking Cigarette Smoking: Never Smoker. [id number] (02/06/2020 15:07:Lali Calderon RN) 55a. 3 Months Before Preg - Ci (02/06/2020 15:07:Maddy Du RN) 55a. Packs: 0 (02/06/2020 15:07:Maddy Du RN) 55b. 1st Trimester of Preg- Ci (02/06/2020 15:07:Maddy Du RN) 55b. Packs: 0 (02/06/2020 15:07:Maddy Du RN) 55c. 2nd Trimester of Preg- Ci (02/06/2020 15:07:Maddy Du RN) 55c. Packs: 0 (02/06/2020 15:07:Maddy Du RN) 55d. 3rd Trimester of Preg- Ci (02/06/2020 15:07:Maddy Du RN) 55d. Packs: 0 (02/06/2020 15:07:Mdady Du RN) Onset of Labor 56a. PROM >12 Hrs: 4.65 (02/06/2020 15:07:QS system process) 56b. Precipitous Labor <3 Hrs: 12 (02/06/2020 15:07:QS system process) 56c. Prolonged Labor > 20 Hrs: 12 (02/06/2020 15:07:QS system process) 57a. Induction of Labor: N/A (02/06/2020 15:07:Lali Calderon RN) 57c. Non-Vertex Presentation A: Vertex (02/06/2020 15:07:Lali Calderon RN) 57d. Steroids - Lung Mat: Full Course (02/06/2020 15:07:Lali Calderon RN) 57d. Steroids - Lung Mat: Celestone 12mg IM - Dose 2 (02/07/2020 17:02:Rebeca Mark RN) 57d. Steroids - Lung Mat: Maternal Indication (02/06/2020 15:07:Lali Calderon RN) 57g. Moderate/Heavy Meconium: Clear (03/09/2020 08:19:Lali Caledron RN) 57h. Intolerance of Labor: N/A (02/06/2020 15:07:Lali Calderon RN) : N/A (02/06/2020 15:07:Lali Calderon RN) 57i. Epidural/Spinal Anesthesia: Epidural (02/06/2020 15:07:Lali Calderon RN) Method of Delivery 58a. Forceps - Unsuccessful A: N/A (02/06/2020 15:07:Lali Calderon RN) 58b. Vacuum - Unsuccessful A: N/A (02/06/2020 15:07:Lali Calderon RN) 58c. Presentation at 58c. Presentation at - A : Vertex (02/06/2020 15:07:Lali Calderon RN) 58c. Presentation at - A : N/A (02/06/2020 15:07:Lali Calderon RN) 58c. Presentation at - A : Cephalic (03/09/2020 03:56:Amarilis Meza RN) Final Route and Method of Del 58d. Baby A Route/Delivery: Vaginal (03/09/2020 12:58:Lali Calderon RN) 58e. Trial of Labor Attempted: No (02/06/2020 15:07:Lali Calderon RN) 58e. Trial of Labor Attempted A: N/A (02/06/2020 15:07:Lali Calderon RN) 58e. Trial of Labor Attempted B: N/A (02/06/2020 15:07:Lali Calderon RN) Maternal Morbidity 59b. 3rd or 4th Degree Lacs: Vaginal (02/06/2020 15:07:Lali Calderon, RN) 59b. 3rd or 4th Degree Lacs: Superficial (02/06/2020 15:07:Royce Brock, RN) Birthweight Baby A: 3516 (02/06/2020 15:07:Lali Calderon, RN) 60a. Pounds : 7 (02/06/2020 15:07:QS system process) 60b. Ounces: 12 (02/06/2020 15:07:QS system process) 61. GA at Delivery Baby A: 38.1 (02/06/2020 15:07:Lali Calderon RN) : Early Term- 37- 38.6 Weeks (02/06/2020 15:07:QS system process) 62a. 5 Minute Baby A: 9 (02/06/2020 15:07:QS system process)
[2020-03-09] MEDS: DOCUSATE SODIUM 100 MG CAPSULE PO SCH (18:57)
[2020-03-09] MEDS: FERROUS SULFATE 325 MG TABLET PO SCH (19:00)
[2020-03-10] MEDS ORDERED: DIPHENHYDRAMINE HCL 25 MG CAPSULE PO PRN (05:00)
[2020-03-10] MEDS ORDERED: ACETAMINOPHEN 325 MG TABLET PO PRN (05:00)
[2020-03-10] MEDS: IBUPROFEN 800 MG TABLET PO SCH ×3 (06:09→22:34)
[2020-03-10 08:39] LABS: HEMATOCRIT 18.7 % (36.0-47.0); MEAN CORPUSCULAR HEMOGLOBIN 21.7 pg (27.0-33.4); MEAN CORPUSCULAR HGB CONC 31.4 g/dL (32.0-36.0); MEAN CORPUSCULAR VOLUME 69 fl (80-97); PLATELET COUNT 258 10^3/uL (150-450); RED BLOOD COUNT 2.72 10^6/uL (3.72-5.28); RED CELL DISTRIBUTION WIDTH 22.6 % (11.5-14.0); WHITE BLOOD COUNT 11.1 10^3/uL (4.0-10.5)
[2020-03-10 08:45] LABS: HEMOGLOBIN 5.9 g/dL (12.0-15.5)
[2020-03-10] MEDS: FERROUS SULFATE 325 MG TABLET PO SCH ×2 (09:19→18:58)
[2020-03-10] MEDS: PRENATAL VITAMIN W DHA CAPSULE PO SCH (09:20)
[2020-03-10] MEDS: SENNOSIDES/DOCUSATE 8.6-50 MG 1 EACH TABLET PO SCH (09:20)
[2020-03-10] MEDS: DOCUSATE SODIUM 100 MG CAPSULE PO SCH ×2 (09:20→18:57)
--- NOTE | 2020-03-10 11:13 | PDOC PROGRESS REPORT ---
Subjective-OB Progress Note for:: 03/10/20 Subjective: Doing well, no c/o breast feeding, aware she is going to receive 2 units of blood today, appears pale, hsb at BS Physical Exam (OB) Vital Signs: Temp Pulse Resp BP Pulse Ox 97.6 F 80 18 107/51 L 97 03/10/20 10:00 03/10/20 07:55 03/10/20 07:55 03/10/20 07:55 03/10/20 07:55 Intake & Output 03/09/20 03/10/20 03/11/20 06:59 06:59 06:59 Intake Total 690 400 Balance 690 400 Weight 91.2 kg - PIH/Pre-Eclampsia Clonus: Negative Headache: Absent Epigastric Pain: No Visual Changes: No - Maternal Morbidity 59. Maternal Morbidity (serious complications experinced by the mother associated with labor and delivery: Maternal transfusion - Lochia Lochia Amount: Small 10-25 ml Lochia Color: Rubra/Red - Abdomen Description: Soft, Flat Hernia Present: No Fundal Description: Firm, Midline Fundal Height: u/u - u/2 Objective-Diagnostic Laboratory: 03/10/20 07:49 03/09/20 03/10/20 13:20 07:49 WBC 11.1 H RBC 2.72 L Hgb 5.9 L Hct 18.7 L MCV 69 L MCH 21.7 L MCHC 31.4 L RDW 22.6 H Plt Count 258 Urine Color JOSE ALEJANDRO Urine Appearance SLIGHTLY-CLOUDY Urine pH 6.0 Ur Specific [place] 1.029 Urine Protein 100 H Urine Glucose (UA) NEGATIVE Urine Ketones 80 H Urine Blood LARGE H Urine Nitrite NEGATIVE Ur Leukocyte Esterase NEGATIVE Urine WBC (Auto) 6 Urine RBC (Auto) >182 Assessment and Plan(PN) - Assessment and Plan (1) Vaginal delivery Is this a current diagnosis for this admission?: Yes (2) PPH ( hemorrhage) Qualifiers: hemorrhage type: third-stage Qualified Code(s): O72.0 - Third- stage hemorrhage Is this a current diagnosis for this admission?: Yes - Time Spent with Patient Time with patient: Less than 15 minutes Medications reviewed and adjusted accordingly: Yes - Disposition Anticipated Discharge Disposition: Home, Self Care Anticipated Discharge Timeframe: within 24 hours
[2020-03-10 22:01] LABS: HEMATOCRIT 22.9 % (36.0-47.0); MEAN CORPUSCULAR HEMOGLOBIN 24.4 pg (27.0-33.4); MEAN CORPUSCULAR HGB CONC 33.3 g/dL (32.0-36.0); PLATELET COUNT 246 10^3/uL (150-450); RED BLOOD COUNT 3.12 10^6/uL (3.72-5.28); RED CELL DISTRIBUTION WIDTH 21.7 % (11.5-14.0)
[2020-03-10 22:05] LABS: MEAN CORPUSCULAR VOLUME 73 fl (80-97)
[2020-03-10 22:07] LABS: HEMOGLOBIN 7.6 g/dL (12.0-15.5)
[2020-03-11] MEDS: IBUPROFEN 800 MG TABLET PO SCH ×2 (05:28→13:21)
[2020-03-11] MEDS: FERROUS SULFATE 325 MG TABLET PO SCH (10:50)
[2020-03-11] MEDS: DOCUSATE SODIUM 100 MG CAPSULE PO SCH (10:50)
[2020-03-11] MEDS: SENNOSIDES/DOCUSATE 8.6-50 MG 1 EACH TABLET PO SCH (10:50)
[2020-03-11] MEDS: PRENATAL VITAMIN W DHA CAPSULE PO SCH (10:50)
[2020-03-11 11:24] LABS: ABSOLUTE BASOPHILS # (AUTO) 0.1 10^3/uL (0.0-0.2); ABSOLUTE EOSINOPHILS # (AUTO) 0.1 10^3/uL (0.0-0.6); ABSOLUTE LYMPHOCYTES (AUTO) 1.9 10^3/uL (0.5-4.7); ABSOLUTE MONOCYTES (AUTO) 0.5 10^3/uL (0.1-1.4); ABSOLUTE NEUT (AUTO) 8.7 10^3/uL (1.7-8.2); BASOPHILS % (AUTO) 0.8 % (0-2); EOSINOPHILS % (AUTO) 0.9 % (0-6); HEMATOCRIT 24.8 % (36.0-47.0); HEMOGLOBIN 8.2 g/dL (12.0-15.5); LYMPHOCYTES % (AUTO) 17.1 % (13-45); MEAN CORPUSCULAR HEMOGLOBIN 24.1 pg (27.0-33.4); MEAN CORPUSCULAR HGB CONC 33.1 g/dL (32.0-36.0); MEAN CORPUSCULAR VOLUME 73 fl (80-97); MONOCYTES % (AUTO) 4.5 % (3-13); PLATELET COUNT 228 10^3/uL (150-450); RED BLOOD COUNT 3.42 10^6/uL (3.72-5.28); RED CELL DISTRIBUTION WIDTH 21.7 % (11.5-14.0); SEGMENTED NEUTROPHILS % (AUTO) 76.7 % (42-78); TOTAL CELLS COUNTED % (AUTO) 100 %; WHITE BLOOD COUNT 11.3 10^3/uL (4.0-10.5)
--- NOTE | 2020-03-11 11:48 | Progress Note ---
Provider Note Provider Note: c/o blood coming from nose and mouth last night, sounds like she had a nose bleed and was swallowing the blood then vomiting it. CBC good today. will discharge to home
--- NOTE | 2020-03-11 11:53 | PDOC DISCHARGE SUMMARY ---
Impression - Admit/DC Date/PCP Admission Date/Primary Care Provider: 03/09/20 01:53 TIP MAIER MD Discharge Date: 03/11/20 - Discharge Diagnosis (1) PPH ( hemorrhage) Is this a current diagnosis for this admission?: Yes (2) Vaginal delivery Is this a current diagnosis for this admission?: Yes (3) Active labor at term Is this a current diagnosis for this admission?: Yes (4) Blood transfusion during current hospitalization Is this a current diagnosis for this admission?: Yes - Additional Information Discharge Diet: Regular Discharge Activity: Balance Activity w/Rest, Pelvic Rest Referrals: TIP MAIER MD [Primary Care Provider] - Prescriptions: Ferrous Sulfate [Feosol 325 mg Tablet] 325 mg PO BID #60 tablet Ibuprofen [Motrin 800 mg Tablet] 800 mg PO Q8HP PRN #60 tablet PRN Reason: Home Medications: Ferrous Sulfate [Feosol 325 mg Tablet] 325 mg PO BID #60 tablet 03/11/20 Ibuprofen [Motrin 800 mg Tablet] 800 mg PO Q8HP PRN #60 tablet 03/11/20 Hospital Course 59. Maternal Morbidity (serious complications experinced by the mother associated with labor and delivery: Maternal transfusion Results Laboratory Results: WBC 11.3 10^3/uL (4.0-10.5) H 03/11/20 10:59 RBC 3.42 10^6/uL (3.72-5.28) L 03/11/20 10:59 Hgb 8.2 g/dL (12.0-15.5) L 03/11/20 10:59 Hct 24.8 % (36.0-47.0) L 03/11/20 10:59 MCV 73 fl (80-97) L 03/11/20 10:59 MCH 24.1 pg (27.0-33.4) L 03/11/20 10:59 MCHC 33.1 g/dL (32.0-36.0) 03/11/20 10:59 RDW 21.7 % (11.5-14.0) H 03/11/20 10:59 Plt Count 228 10^3/uL (150-450) 03/11/20 10:59 Lymph % (Auto) 17.1 % (13-45) 03/11/20 10:59 [place] % (Auto) 4.5 % (3-13) 03/11/20 10:59 Eos % (Auto) 0.9 % (0-6) 03/11/20 10:59 Baso % (Auto) 0.8 % (0-2) 03/11/20 10:59 Absolute Neuts (auto) 8.7 10^3/uL (1.7-8.2) H 03/11/20 10:59 Absolute Lymphs (auto) 1.9 10^3/uL (0.5-4.7) 03/11/20 10:59 Absolute Monos (auto) 0.5 10^3/uL (0.1-1.4) 03/11/20 10:59 Absolute Eos (auto) 0.1 10^3/uL (0.0-0.6) 03/11/20 10:59 Absolute Basos (auto) 0.1 10^3/uL (0.0-0.2) 03/11/20 10:59 Seg Neutrophils % 76.7 % (42-78) 03/11/20 10:59 Platelet Estimate Cancelled 03/09/20 02:04 Urine Color JOSE ALEJANDRO 03/09/20 13:20 Urine Appearance SLIGHTLY-CLOUDY 03/09/20 13:20 Urine pH 6.0 (5.0-9.0) 03/09/20 13:20 Ur Specific [place] 1.029 03/09/20 13:20 Urine Protein 100 mg/dL (NEGATIVE) H 03/09/20 13:20 Urine Glucose (UA) NEGATIVE mg/dL (NEGATIVE) 03/09/20 13:20 Urine Ketones 80 mg/dL (NEGATIVE) H 03/09/20 13:20 Urine Blood LARGE (NEGATIVE) H 03/09/20 13:20 Urine Nitrite NEGATIVE (NEGATIVE) 03/09/20 13:20 Urine Bilirubin NEGATIVE (NEGATIVE) 03/09/20 13:20 Urine Urobilinogen 4.0 mg/dL (<2.0) H 03/09/20 13:20 Ur Leukocyte Esterase NEGATIVE (NEGATIVE) 03/09/20 13:20 Urine WBC (Auto) 6 /HPF 03/09/20 13:20 Urine RBC (Auto) >182 /HPF 03/09/20 13:20 Squamous Epi Cells Auto 2 /HPF 03/09/20 13:20 Urine Mucus (Auto) MANY /LPF 03/09/20 13:20 Urine Ascorbic Acid NEGATIVE (NEGATIVE) 03/09/20 13:20 Urine Opiates Screen NEGATIVE 03/09/20 01:35 Urine Methadone Screen NEGATIVE 03/09/20 01:35 Ur Barbiturates Screen NEGATIVE 03/09/20 01:35 Ur Phencyclidine Scrn NEGATIVE 03/09/20 01:35 Ur Amphetamines Screen NEGATIVE 03/09/20 01:35 U Benzodiazepines Scrn NEGATIVE 03/09/20 01:35 Urine Cocaine Screen NEGATIVE 03/09/20 01:35 U Marijuana (THC) Screen NEGATIVE 03/09/20 01:35 Slides for Path Review Cancelled 03/09/20 02:04 Blood Type B POSITIVE 03/09/20 02:04 Antibody Screen NEGATIVE 03/09/20 02:04 Crossmatch See Detail 03/09/20 02:04 Plan Plan of Treatment: follow up in 4 weeks at [facility] for post check
[2020-03-11 12:10] VITALS: BP 99/55
== END 2020-03-11 13:31 | disposition home or self-care (01) | DRG 806 ==
LOC: LC 01:26 → LR 01:53 → 2S 17:53
PROVIDERS: ADMIT Obstetrics & Gynecology; ATTEND Obstetrics & Gynecology
PROC: 10E0XZZ Delivery of Products of Conception, External Approach (ICD-10-PCS; principal; 2020-03-09)
PROC: 0HQ9XZZ Repair Perineum Skin, External Approach (ICD-10-PCS; 2020-03-09)
PROC: 30233N1 Transfusion of Nonautologous Red Blood Cells into Peripheral Vein, Percutaneous Approach (ICD-10-PCS; 2020-03-10)
DX: O69.81X0 Labor and delivery complicated by cord around neck, without compression, not applicable or unspecified (principal); O72.1 Other immediate postpartum hemorrhage; Z37.0 Single live birth; O70.0 First degree perineal laceration during delivery; O99.824 Streptococcus B carrier state complicating childbirth; Z3A.38 38 weeks gestation of pregnancy; R04.0 Epistaxis; O99.892 Other specified diseases and conditions complicating childbirth
CPT/HCPCS: 36415; 36430; 80307; 81001; 81005; 85025; 85027; 86592; 86850; 86900; 86901; 86920; 87086; 90716; 94760; J1756; J2405; J2590; J2795; J3010; J3490; P9016; S0028